=== PATIENT | male | born 1945 | race Caucasian/White ===

== ENCOUNTER → 2016-05-13 | Outpatient (CLI) | payer MEDICARE, OTHER ==
[~2016-05-13] MED LIST: /ATOR40TA; ACCU5TAB7; GLUC500T; PERC5TAB8; PERC7.5T8; TRIC145T19
--- NOTE | 2016-05-13 16:29 | REP ---
CT STUDY OF THE CHEST AND ABDOMEN WITHOUT CONTRAST: HISTORY: Abdominal aortic aneurysm without rupture. COMPARISON: CT study of the chest is from 05/21/2015. This prior study showed mild aneurysmal dilation of the ascending an descending thoracic aorta. CT FINDINGS: There are granulomatous calcific residuals in the right hilus, right mediastinum, and right upper lobe of the lung, unchanged from the comparison study. No significant pulmonary mass or nodule is seen. No infiltrate or atelectasis is observed. No endobronchial disease is appreciated. There is some low density mucous at the origin of the origin of the left mainstem bronchus. No hilar or mediastinal mass or adenopathy is seen. Vascular calcification is seen in the distribution of the left coronary artery and there are sclerotic calcifications at the level of the aortic valve. The AP dimension of the ascending aorta measures 4.[address]'s [address] scan at the level of the right main pulmonary artery. This is felt to be unchanged from the prior study. The descending aorta is not felt to be aneurysmal measuring 3.1 cm in greatest dimension, transversely. This is unchanged as well. No pleural or pericardiac effusion is seen. There are multiple bilateral low density lesions consistent with renal cyst again noted in each kidney. The infrarenal abdominal aorta is somewhat ectatic measuring 2.1 cm but not aneurysmal. No hepatic or splenic lesion is seen. No adrenal lesion is observed. No pancreatic abnormality is seen. Gallbladder is unremarkable. Small and large intestinal bowel loops are normal in the abdomen. No retroperitoneal mass or adenopathy is seen. IMPRESSION: 1. 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 2. The largest cyst affecting the right kidney is in the lower pole measuring 5.4 cm. The largest cyst in the left kidney is at mid to lower pole level measuring 3.8 cm in diameter. These can be confirmed by ultrasound. There were cysts in 2008 although they are larger now. 3. Old granulomatous calcifications in the right lung, right mediastinum and right hilus. 4. Sclerotic calcifications at the level of the aortic valve and root. Signed by Lexx Arnold MD 05/13/2016 06:01 P
== END ==
LOC: M RAD 10:03
PROVIDERS: ATTEND Physician Assistant
DX: I71.4 Abdominal aortic aneurysm, without rupture (principal); N28.1 Cyst of kidney, acquired

== ENCOUNTER 2016-06-02 19:49 | Emergency (ER) | payer OTHER, MEDICARE ==
[2016-06-02 20:42] LABS: BASO # 0.1 K/mm3 (0.0-0.2); BASO % 1.5 % (0.0-1.0); EOS # 0.2 K/mm3 (0.0-0.50); EOS % 3.2 % (0.0-3.0); LARGE UNSTAINED CELL # 0.3 K/mm3 (0.0-0.4); LARGE UNSTAINED CELL % 5.4 % (0.0-4.0); LYMPH # 1.9 K/mm3 (1.5-4.5); MEAN CORPUSCULAR HGB CONC 31.2 g/dl (32.0-36.5); MEAN CORPUSCULAR VOLUME 89.8 fl (80.0-96.0); MONO # 0.5 K/mm3 (0.0-0.8); MONO % 8.3 % (0.0-5.0); NEUTROPHILS # 2.9 K/mm3 (1.8-7.7); NEUTROPHILS % 52.6 % (36.0-66.0); PLATELET COUNT, AUTOMATED 325 k/mm3 (150-450); RED CELL DISTRIBUTION WIDTH 14.2 % (11.5-14.5); WHITE BLOOD COUNT 5.5 K/mm3 (4.0-10.0)
[2016-06-02 20:44] LABS: INR 0.94
[2016-06-02 21:03] LABS: ANION GAP 5 MEQ/L (8-16); BLOOD UREA NITROGEN 15 MG/DL (7-18); CALCIUM LEVEL 8.8 MG/DL (8.8-10.2); CARBON DIOXIDE LEVEL 30 MEQ/L (21-32); CHLORIDE LEVEL 107 MEQ/L (98-107); CREATININE FOR GFR 1.19 MG/DL (0.70-1.30); GLOMERULAR FILTRATION RATE > 60.0 (>42); GLUCOSE, FASTING 145 MG/DL (83-110); POTASSIUM SERUM 4.5 MEQ/L (3.5-5.1); SODIUM LEVEL 142 MEQ/L (136-145)
--- NOTE | 2016-06-02 21:20 | REPUSA ---
Clinical history: Pain, swelling. Findings: The right common femoral, superficial femoral, popliteal, and other deep venous structures compress normally and demonstrate normal color Doppler flow. Normal venous waveforms with augmentatio n are seen. However, there are numerous varicose veins in the medial aspect of the knee joint, some o f which appear to be thrombosed. Impression: No evidence of deep vein thrombosis in the femoral popliteal venous system. Superficial venous thromb osis of varicose veins in the medial aspect of the knee joint.
--- NOTE | 2016-06-02 22:00 | EDDOCDS ---
Physician Documentation [facility] Name: Ghanshyam Garcia Age: 71 yrs Sex: Male : 1945 Arrival Date: 06/02/2016 Time: 19:49 Bed I9 Private MD: David Florez P. Disposition: 06/02/16 21:42 Discharged to Home/Self Care. Impression: Acute embolism and thrombosis of superficial veins of right upper extremity. - Condition is Stable. - Discharge Instructions: Phlebitis. - Medication Reconciliation, Local Pharmacy Hours form. - Follow up: David Florez; When: 2 - 3 days; Reason: Recheck today's complaints. - Problem is new. - Symptoms are unchanged. - Notes: You were seen in the ED for pain and swelling in the right leg. Ultrasound showed superficial clot or thrombophlebitis but no deep blood clots. You may return to have this rechecked with your doctor this week - please call in the morning to arrange an appointment to be seen. You may take Ibuprofen as needed and apply warm compresses for comfort. Return to the ED for any worsening leg pain or swelling, chest pain, shortness of breath, lightheadedness, loss of consciousness or any other concerns. Historical: - Allergies: PENICILLINS; - Home Meds: 1. oxycodone-acetaminophen 5-325 mg Oral tab 1 tab (Last dose: Unknown) 2. atorvastatin 40 mg oral tab 1 tab once daily 3. omeprazole 40 mg Oral cpDR 1 cap once daily 4. fenofibrate oral 135 mg oral 1 cap once daily 5. metformin 500 mg Oral Tb24 1 tab once daily 6. lisinopril 5 mg Oral tab 1 tab once daily 7. Vitamin D 1.25 mg Oral daily 8. eye cap Unknown daily OTC medication 9. aspirin 81 mg Oral tab 1 tab once daily - PMHx: Macular Degeneration; Diabetes - NIDDM: uncontrolled; GERD; - PSHx: Rotator cuff repair, left, 2011; Left knee replaced 2010; left knee surgery 2015; - Social history: No barriers to communication noted, The patient speaks fluent Jordanian, Smoking status: Patient states was never smoker of tobacco. - Family history: Not pertinent. - : The pt / caregiver states he / she is not on anticoagulants. Home medication list is obtained from the patient. - Exposure Risk Screening:: None identified. Vital Signs: 06/02 19:51 BP 143 / 82; Pulse 76; Resp 18 S; Temp 97.9(O); Pulse Ox 99% on R/A; Weight 95.25 kg / dd6 209.99 lbs (R); Height 5 ft. 6 in. (167.64 cm) (R); 21:56 BP 113 / 73; Pulse 84; Resp 18; Temp 98; Pulse Ox 95% ; Pain 0/10; ms18 19:51 Body Mass Index 33.89 (95.25 kg, 167.64 cm) dd6 MDM: 20:19 Ultrasound LE Unilateral R/O DVT Ordered. EDMS 20:19 CBC with Diff Ordered. EDMS 20:19 BMP Ordered. EDMS 20:19 PT/INR Ordered. EDMS 20:19 PTT Ordered. EDMS 20:46 CBC with Diff Reviewed. br1 20:51 PTT Reviewed. br1 20:51 PT/INR Reviewed. br1 21:40 BMP Reviewed. br1 21:40 Ultrasound LE Unilateral R/O DVT Reviewed. br1 Signatures: Dispatcher [employer] Kristian Albert MD MD br1 Maria C Treadwell,RN RN ms18 Aayush FryRN RN mb9 FAWAD
--- NOTE | 2016-06-02 22:01 | EDDOCDS ---
Nurse's Notes [facility] Name: Ghanshyam Garcia Age: 71 yrs Sex: Male : 1945 Arrival Date: 06/02/2016 Time: 19:49 Bed I9 / 22 Private MD: David Florez P. Diagnosis: Acute embolism and thrombosis of superficial veins of right upper extremity Presentation: 06/02 20:02 Presenting complaint: Patient states: "I got a bump on my leg behind my knee here and mb9 it hurts". pt's reports he was seen at urgent care and told to come here to have an ultrasound done. Adult Sepsis Screening: The patient does not have new or worsening altered mentation. Patient's respiratory rate is less than 22. Systolic blood pressure is greater than 100. Patient has a qSOFA score of 0- Negative Sepsis Screen. Suicide/Homicide risk assessment- the patient denies having any suicidal and/or homicidal ideations and does not present with any other emotional, behavioral or mental health complaints. 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 Transition of care: patient was not received from another setting of care. 20:02 Acuity: RUBEN Level 3 mb9 20:02 Method Of Arrival: Walkin/Carried/Asstd mb9 Triage Assessment: 20:12 General: Appears in no apparent distress, Behavior is appropriate for age, cooperative. mb9 Pain: Location: medial aspect of right knee. Cardiovascular: pt's right lower extremity appears swollen compared to the left. pt has a swollen area approximately the size of a golf ball to the medial knee area. sit feels warm on palpation. . Historical: - Allergies: PENICILLINS; - Home Meds: 1. oxycodone-acetaminophen 5-325 mg Oral tab 1 tab (Last dose: Unknown) 2. atorvastatin 40 mg oral tab 1 tab once daily 3. omeprazole 40 mg Oral cpDR 1 cap once daily 4. fenofibrate oral 135 mg oral 1 cap once daily 5. metformin 500 mg Oral Tb24 1 tab once daily 6. lisinopril 5 mg Oral tab 1 tab once daily 7. Vitamin D 1.25 mg Oral daily 8. eye cap Unknown daily OTC medication 9. aspirin 81 mg Oral tab 1 tab once daily - PMHx: Macular Degeneration; Diabetes - NIDDM: uncontrolled; GERD; - PSHx: Rotator cuff repair, left, 2012; Left knee replaced 2010; left knee surgery 2016; - Social history: No barriers to communication noted, The patient speaks fluent Bulgarian, Smoking status: Patient states was never smoker of tobacco. - Family history: Not pertinent. - : The pt / caregiver states he / she is not on anticoagulants. Home medication list is obtained from the patient. - Exposure Risk Screening:: None identified. Screenin:31 Screening information is obtained from the patient. Fall risk: No risks identified. ms18 Assistance ADL's: requires no assistance with activities of daily living. Abuse/DV Screen: The patient / caregiver reports he/she is: not in a situation that causes fear, pain or injury. Nutritional screening: No deficits noted. Advance Directives: There is no living will. 21:56 home support is adequate. ms18 Assessment: 20:31 General: Appears in no apparent distress, comfortable, Behavior is appropriate for age, ms18 cooperative, pleasant. General: Pt reports some redness noted to his R thigh area. Pt denies pain at this time, but states that it hurts when he lays down to sleep at night. . Pain: Denies pain. Neurological: Level of Consciousness is awake, alert, obeys commands, Oriented to person, place, time. Neurological: Gait is steady, Speech is normal. Cardiovascular: Capillary refill < 3 seconds. Respiratory: Airway is patent Respiratory effort is even, unlabored. GI: No deficits noted. Derm: Skin is pink, warm & dry. 21:56 General: Appears in no apparent distress, comfortable, Behavior is appropriate for age, ms18 cooperative. Pain: Denies pain. Neurological: No deficits noted. Respiratory: Respiratory effort is even, unlabored. Derm: Skin is pink, warm & dry. normal. Vital Signs: 19:51 BP 143 / 82; Pulse 76; Resp 18 S; Temp 97.9(O); Pulse Ox 99% on R/A; Weight 95.25 kg dd6 (R); Height 5 ft. 6 in. (167.64 cm) (R); 21:56 BP 113 / 73; Pulse 84; Resp 18; Temp 98; Pulse Ox 95% ; Pain 0/10; ms18 19:51 Body Mass Index 33.89 (95.25 kg, 167.64 cm) dd6 Vitals: 19:51 Log In Time: June 02, 2016 at 19:49. dd6 ED Course: 19:50 Patient visited by Gabe Watt PCA. dd6 19:50 Patient moved to Waiting dd6 19:51 David Florez is Private Physician. dd6 19:51 Patient moved to Pre RCE dd6 20:04 Triage Initiated mb9 20:08 Kristian Morales MD is Attending Physician. br1 20:08 Patient moved to I9 lf1 20:17 Patient visited by Kristian Morales MD. br1 20:30 Patient visited by Maria C Treadwell,ETHAN. ms18 20:30 PTT Sent. ms18 20:30 PT/INR Sent. ms18 20:30 BMP Sent. ms18 20:30 CBC with Diff Sent. ms18 20:31 The patient / caregiver is instructed regarding the plan of care and ED course. ms18 Accompanied by Significant Other, Patient has correct armband on for positive identification. Bed in low position. Call light in reach. Property :Personal belongings accompany Pt. 20:53 Patient moved to Ultrasound dmg 21:11 Patient moved to I9 dmg 21:20 Patient visited by Maria C Treadwell,ETHAN. ms18 21:22 Ultrasound LE Unilateral R/O DVT Returned. EDMS 21:41 Patient visited by Kristian Morales MD. br1 21:42 David Florez is Referral Physician. br1 21:56 Patient visited by Maria C Treadwell,ETHAN. ms18 21:56 No IV's were initiated during this patient's visit. No procedures done that require ms18 assistance. Order Results: Lab Order: CBC with Diff; SPEC'M 06/02/16 20:23 Test: WHITE BLOOD COUNT; Value: 5.5; Range: 4.0-10.0; Units: K/mm3; Status: F Test: RED BLOOD COUNT; Value: 4.19; Range: 4.30-6.10; Abnormal: Below low normal; Units: M/mm3; Status: F Test: HEMOGLOBIN; Value: 11.7; Range: 14.0-18.0; Abnormal: Below low normal; Units: g/dl; Status: F Test: HEMATOCRIT; Value: 37.6; Range: 42.0-52.0; Abnormal: Below low normal; Units: %; Status: F Test: MEAN CORPUSCULAR VOLUME; Value: 89.8; Range: 80.0-96.0; Units: fl; Status: F Test: MEAN CORPUSCULAR HEMOGLOBIN; Value: 28.0; Range: 27.0-33.0; Units: pg; Status: F Test: MEAN CORPUSCULAR HGB CONC; Value: 31.2; Range: 32.0-36.5; Abnormal: Below low normal; Units: g/dl; Status: F Test: RED CELL DISTRIBUTION WIDTH; Value: 14.2; Range: 11.5-14.5; Units: %; Status: F Test: PLATELET COUNT, AUTOMATED; Value: 325; Range: 150-450; Units: k/mm3; Status: F Test: NEUTROPHILS %; Value: 52.6; Range: 36.0-66.0; Units: %; Status: F Test: LYMPH %; Value: 29.0; Range: 24.0-44.0; Units: %; Status: F Test: MONO %; Value: 8.3; Range: 0.0-5.0; Abnormal: Above high normal; Units: %; Status: F Test: EOS %; Value: 3.2; Range: 0.0-3.0; Abnormal: Above high normal; Units: %; Status: F Test: BASO %; Value: 1.5; Range: 0.0-1.0; Abnormal: Above high normal; Units: %; Status: F Test: LARGE UNSTAINED CELL %; Value: 5.4; Range: 0.0-4.0; Abnormal: Above high normal; Units: %; Status: F Test: NEUTROPHILS #; Value: 2.9; Range: 1.8-7.7; Units: K/mm3; Status: F Test: LYMPH #; Value: 1.9; Range: 1.5-4.5; Units: K/mm3; Status: F Test: MONO #; Value: 0.5; Range: 0.0-0.8; Units: K/mm3; Status: F Test: EOS #; Value: 0.2; Range: 0.0-0.50; Units: K/mm3; Status: F Test: BASO #; Value: 0.1; Range: 0.0-0.2; Units: K/mm3; Status: F Test: LARGE UNSTAINED CELL #; Value: 0.3; Range: 0.0-0.4; Units: K/mm3; Status: F Lab Order: BMP; SPEC'M 06/02/16 20:23 Test: GLUCOSE, FASTING; Value: 145; Range: 83-110; Abnormal: Above high normal; Units: MG/DL; Status: F Test: BLOOD UREA NITROGEN; Value: 15; Range: 7-18; Units: MG/DL; Status: F Test: CREATININE FOR GFR; Value: 1.19; Range: 0.70-1.30; Units: MG/DL; Status: F Test: GLOMERULAR FILTRATION RATE; Value: > 60.0; Range: >42; Status: F Test: SODIUM LEVEL; Value: 142; Range: 136-145; Units: MEQ/L; Status: F Test: POTASSIUM SERUM; Value: 4.5; Range: 3.5-5.1; Units: MEQ/L; Status: F Test: CHLORIDE LEVEL; Value: 107; Range: 98-107; Units: MEQ/L; Status: F Test: CARBON DIOXIDE LEVEL; Value: 30; Range: 21-32; Units: MEQ/L; Status: F Test: ANION GAP; Value: 5; Range: 8-16; Abnormal: Below low normal; Units: MEQ/L; Status: F Test: CALCIUM LEVEL; Value: 8.8; Range: 8.8-10.2; Units: MG/DL; Status: F Test Note: ; Units are mL/min/1.73 m2 Chronic Kidney Disease Staging per NKF: Stage I & II GFR >=60 Normal to Mildly Decreased Stage III GFR 30-59 Moderately Decreased Stage IV GFR 15-29 Severely Decreased Stage V GFR <15 Very Little GFR Left ESRD GFR <15 on SALES PROJECT MANAGER Lab Order: PT/INR; SPEC'06/02/16 20:23 Test: PROTHROMBIN TIME; Value: 12.7; Range: 12.3-14.5; Units: SECONDS; Status: F Test: INR; Value: 0.94; Status: F Test Note: ; THERAPUTIC HUMAN INR VALUES INDICATIONS NORMAL RANGES PROPHYLAXIS/TREATMENT OF: VENOUS THROMBOSIS 2.0-3.0 PULMONARY EMBOLISM 2.0-3.0 PREVENTION OF SYSTEMIC EMBOLISM FROM: TISSUE HEART VALVES 2.0-3.0 ACUTE MYOCARDIAL INFARCTION 2.0-3.0 VALVULAR HEART DISEASE 2.0-3.0 ATRIAL FIBRILLATION 2.0-3.0 MECHANICAL VALVES(HIGH RISK) 2.5-3.5 RECURRENT MYOCARDIAL INFARCTION 2.5-3.5 Lab Order: PTT; SPEC'M 06/02/16 20:23 Test: PARTIAL THROMBOPLASTIN TIME; Value: 25.6; Range: 26.6-37.1; Abnormal: Below low normal; Units: SECONDS; Status: F Radiology Order: Ultrasound LE Unilateral R/O DVT Test: Ultrasound LE Unilateral R/O DVT REASON FOR EXAMINATION: Deformity/Swelling; ; Clinical history: Pain, swelling.; Findings: The right common femoral, superficial femoral, popliteal, and other deep venous structures; compress normally and demonstrate normal color Doppler flow. Normal venous waveforms with augmentatio; n are seen. However, there are numerous varicose veins in the medial aspect of the knee joint, some o; f which appear to be thrombosed.; Impression:; No evidence of deep vein thrombosis in the femoral popliteal venous system. Superficial venous thromb; osis of varicose veins in the medial aspect of the knee joint.; ; Outcome: 21:42 Discharge ordered by Provider. br1 21:56 Discharge Assessment: Patient awake, alert and oriented x 3. No cognitive and/or ms18 functional deficits noted. Patient verbalized understanding of disposition instructions. patient administered narcotics - no. The following High Risk Discharge criteria are identified: None. Discharged to home ambulatory. Condition: good Condition: stable. Discharge instructions given to patient, Instructed on discharge instructions, follow up and referral plans. Demonstrated understanding of instructions, Pt was receptive of discharge instructions/ teaching. Ultrasound Study completed. 21:59 Patient left the ED. ms18 Signatures: Dispatcher [employer] EDCarmelita Iniguez Lisa,RN RN lf1 Kristian Morales MD MD br1 Gabe Watt, EDGING MACHINE FEEDER EDGING MACHINE FEEDER dd6 Mraia C Treadwell RN RN ms18 Aayush Fry RN RN mb9 MTDD
--- NOTE | 2016-06-04 23:01 | EDDOCDS ---
Physician Documentation [facility] Name: Ghanshyam Garcia Age: 71 yrs Sex: Male : 1945 Arrival Date: 06/02/2016 Time: 19:49 Bed I9 Private MD: David Florez P. Disposition: 06/02/16 21:42 Discharged to Home/Self Care. Impression: Acute embolism and thrombosis of superficial veins of right upper extremity. - Condition is Stable. - Discharge Instructions: Phlebitis. - Medication Reconciliation, Local Pharmacy Hours form. - Follow up: David Florez; When: 2 - 3 days; Reason: Recheck today's complaints. - Problem is new. - Symptoms are unchanged. - Notes: You were seen in the ED for pain and swelling in the right leg. Ultrasound showed superficial clot or thrombophlebitis but no deep blood clots. You may return to have this rechecked with your doctor this week - please call in the morning to arrange an appointment to be seen. You may take Ibuprofen as needed and apply warm compresses for comfort. Return to the ED for any worsening leg pain or swelling, chest pain, shortness of breath, lightheadedness, loss of consciousness or any other concerns. Historical: - Allergies: PENICILLINS; - Home Meds: 1. oxycodone-acetaminophen 5-325 mg Oral tab 1 tab (Last dose: Unknown) 2. atorvastatin 40 mg oral tab 1 tab once daily 3. omeprazole 40 mg Oral cpDR 1 cap once daily 4. fenofibrate oral 135 mg oral 1 cap once daily 5. metformin 500 mg Oral Tb24 1 tab once daily 6. lisinopril 5 mg Oral tab 1 tab once daily 7. Vitamin D 1.25 mg Oral daily 8. eye cap Unknown daily OTC medication 9. aspirin 81 mg Oral tab 1 tab once daily - PMHx: Macular Degeneration; Diabetes - NIDDM: uncontrolled; GERD; - PSHx: Rotator cuff repair, left, 2011; Left knee replaced 2010; left knee surgery 2015; - Social history: No barriers to communication noted, The patient speaks fluent Tajik, Smoking status: Patient states was never smoker of tobacco. - Family history: Not pertinent. - : The pt / caregiver states he / she is not on anticoagulants. Home medication list is obtained from the patient. - Exposure Risk Screening:: None identified. Vital Signs: 06/02 19:51 BP 143 / 82; Pulse 76; Resp 18 S; Temp 97.9(O); Pulse Ox 99% on R/A; Weight 95.25 kg / dd6 209.99 lbs (R); Height 5 ft. 6 in. (167.64 cm) (R); 21:56 BP 113 / 73; Pulse 84; Resp 18; Temp 98; Pulse Ox 95% ; Pain 0/10; ms18 19:51 Body Mass Index 33.89 (95.25 kg, 167.64 cm) dd6 MDM: 20:19 Ultrasound LE Unilateral R/O DVT Ordered. EDMS 20:19 CBC with Diff Ordered. EDMS 20:19 BMP Ordered. EDMS 20:19 PT/INR Ordered. EDMS 20:19 PTT Ordered. EDMS 20:46 CBC with Diff Reviewed. br1 20:51 PTT Reviewed. br1 20:51 PT/INR Reviewed. br1 21:40 BMP Reviewed. br1 21:40 Ultrasound LE Unilateral R/O DVT Reviewed. br1 06/03 10:34 T-Sheet-- Draft Copy was scanned into mAPPn and attached to record. gb 10:34 Radiology Report was scanned into mAPPn and attached to record. gb Signatures: Dispatcher [employer] EDAdali Adams, Reg Reg gb Kristian Morales MD MD br1 Maria C Treadwell,ETHAN RN ms18 Aayush Fry RN RN mb9 The chart was reviewed and I authenticate all verbal orders and agree with the evaluation and treatment provided.Attachments: 10:34 T-Sheet-- Draft Copy gb Chart Complete MTDD
--- NOTE | 2016-06-04 23:01 | EDDOCDS ---
Nurse's Notes [facility] Name: Ghanshyam Garcia Age: 71 yrs Sex: Male : 1945 Arrival Date: 06/02/2016 Time: 19:49 Bed I9 / 22 Private MD: David Florez P. Diagnosis: Acute embolism and thrombosis of superficial veins of right upper extremity Presentation: 06/02 20:02 Presenting complaint: Patient states: "I got a bump on my leg behind my knee here and mb9 it hurts". pt's reports he was seen at urgent care and told to come here to have an ultrasound done. Adult Sepsis Screening: The patient does not have new or worsening altered mentation. Patient's respiratory rate is less than 22. Systolic blood pressure is greater than 100. Patient has a qSOFA score of 0- Negative Sepsis Screen. Suicide/Homicide risk assessment- the patient denies having any suicidal and/or homicidal ideations and does not present with any other emotional, behavioral or mental health complaints. Status: Patient is not a septic tank servicer or dependent. Transition of care: patient was not received from another setting of care. 20:02 Acuity: RUBEN Level 3 mb9 20:02 Method Of Arrival: Walkin/Carried/Asstd mb9 Triage Assessment: 20:12 General: Appears in no apparent distress, Behavior is appropriate for age, cooperative. mb9 Pain: Location: medial aspect of right knee. Cardiovascular: pt's right lower extremity appears swollen compared to the left. pt has a swollen area approximately the size of a golf ball to the medial knee area. sit feels warm on palpation. . Historical: - Allergies: PENICILLINS; - Home Meds: 1. oxycodone-acetaminophen 5-325 mg Oral tab 1 tab (Last dose: Unknown) 2. atorvastatin 40 mg oral tab 1 tab once daily 3. omeprazole 40 mg Oral cpDR 1 cap once daily 4. fenofibrate oral 135 mg oral 1 cap once daily 5. metformin 500 mg Oral Tb24 1 tab once daily 6. lisinopril 5 mg Oral tab 1 tab once daily 7. Vitamin D 1.25 mg Oral daily 8. eye cap Unknown daily OTC medication 9. aspirin 81 mg Oral tab 1 tab once daily - PMHx: Macular Degeneration; Diabetes - NIDDM: uncontrolled; GERD; - PSHx: Rotator cuff repair, left, 2012; Left knee replaced 2010; left knee surgery 2016; - Social history: No barriers to communication noted, The patient speaks fluent Macedonian, Smoking status: Patient states was never smoker of tobacco. - Family history: Not pertinent. - : The pt / caregiver states he / she is not on anticoagulants. Home medication list is obtained from the patient. - Exposure Risk Screening:: None identified. Screenin:31 Screening information is obtained from the patient. Fall risk: No risks identified. ms18 Assistance ADL's: requires no assistance with activities of daily living. Abuse/DV Screen: The patient / caregiver reports he/she is: not in a situation that causes fear, pain or injury. Nutritional screening: No deficits noted. Advance Directives: There is no living will. 21:56 home support is adequate. ms18 Assessment: 20:31 General: Appears in no apparent distress, comfortable, Behavior is appropriate for age, ms18 cooperative, pleasant. General: Pt reports some redness noted to his R thigh area. Pt denies pain at this time, but states that it hurts when he lays down to sleep at night. . Pain: Denies pain. Neurological: Level of Consciousness is awake, alert, obeys commands, Oriented to person, place, time. Neurological: Gait is steady, Speech is normal. Cardiovascular: Capillary refill < 3 seconds. Respiratory: Airway is patent Respiratory effort is even, unlabored. GI: No deficits noted. Derm: Skin is pink, warm & dry. 21:56 General: Appears in no apparent distress, comfortable, Behavior is appropriate for age, ms18 cooperative. Pain: Denies pain. Neurological: No deficits noted. Respiratory: Respiratory effort is even, unlabored. Derm: Skin is pink, warm & dry. normal. Vital Signs: 19:51 BP 143 / 82; Pulse 76; Resp 18 S; Temp 97.9(O); Pulse Ox 99% on R/A; Weight 95.25 kg dd6 (R); Height 5 ft. 6 in. (167.64 cm) (R); 21:56 BP 113 / 73; Pulse 84; Resp 18; Temp 98; Pulse Ox 95% ; Pain 0/10; ms18 19:51 Body Mass Index 33.89 (95.25 kg, 167.64 cm) dd6 Vitals: 19:51 Log In Time: June 02, 2016 at 19:49. dd6 ED Course: 19:50 Patient visited by Gabe Watt PCA. dd6 19:50 Patient moved to Waiting dd6 19:51 David Florez is Private Physician. dd6 19:51 Patient moved to Pre RCE dd6 20:04 Triage Initiated mb9 20:08 Kristian Morales MD is Attending Physician. br1 20:08 Patient moved to I9 / lf1 20:17 Patient visited by Kristian Morales MD. br1 20:30 Patient visited by Maria C Treadwell,ETHAN. ms18 20:30 PTT Sent. ms18 20:30 PT/INR Sent. ms18 20:30 BMP Sent. ms18 20:30 CBC with Diff Sent. ms18 20:31 The patient / caregiver is instructed regarding the plan of care and ED course. ms18 Accompanied by Significant Other, Patient has correct armband on for positive identification. Bed in low position. Call light in reach. Property :Personal belongings accompany Pt. 20:53 Patient moved to Ultrasound dmg 21:11 Patient moved to I9 / dmg 21:20 Patient visited by Maria C Treadwell,ETHAN. ms18 21:22 Ultrasound LE Unilateral R/O DVT Returned. EDMS 21:41 Patient visited by Kristian Morales MD. br1 21:42 David Florez is Referral Physician. br1 21:56 Patient visited by Maria C Treadwell,ETHAN. ms18 21:56 No IV's were initiated during this patient's visit. No procedures done that require ms18 assistance. 06/03 10:34 T-Sheet-- Draft Copy was scanned into [employer] and attached to record. gb 10:34 Radiology Report was scanned into [employer] and attached to record. gb Order Results: Lab Order: CBC with Diff; SPEC'M 06/02/16 20:23 Test: WHITE BLOOD COUNT; Value: 5.5; Range: 4.0-10.0; Units: K/mm3; Status: F Test: RED BLOOD COUNT; Value: 4.19; Range: 4.30-6.10; Abnormal: Below low normal; Units: M/mm3; Status: F Test: HEMOGLOBIN; Value: 11.7; Range: 14.0-18.0; Abnormal: Below low normal; Units: g/dl; Status: F Test: HEMATOCRIT; Value: 37.6; Range: 42.0-52.0; Abnormal: Below low normal; Units: %; Status: F Test: MEAN CORPUSCULAR VOLUME; Value: 89.8; Range: 80.0-96.0; Units: fl; Status: F Test: MEAN CORPUSCULAR HEMOGLOBIN; Value: 28.0; Range: 27.0-33.0; Units: pg; Status: F Test: MEAN CORPUSCULAR HGB CONC; Value: 31.2; Range: 32.0-36.5; Abnormal: Below low normal; Units: g/dl; Status: F Test: RED CELL DISTRIBUTION WIDTH; Value: 14.2; Range: 11.5-14.5; Units: %; Status: F Test: PLATELET COUNT, AUTOMATED; Value: 325; Range: 150-450; Units: k/mm3; Status: F Test: NEUTROPHILS %; Value: 52.6; Range: 36.0-66.0; Units: %; Status: F Test: LYMPH %; Value: 29.0; Range: 24.0-44.0; Units: %; Status: F Test: MONO %; Value: 8.3; Range: 0.0-5.0; Abnormal: Above high normal; Units: %; Status: F Test: EOS %; Value: 3.2; Range: 0.0-3.0; Abnormal: Above high normal; Units: %; Status: F Test: BASO %; Value: 1.5; Range: 0.0-1.0; Abnormal: Above high normal; Units: %; Status: F Test: LARGE UNSTAINED CELL %; Value: 5.4; Range: 0.0-4.0; Abnormal: Above high normal; Units: %; Status: F Test: NEUTROPHILS #; Value: 2.9; Range: 1.8-7.7; Units: K/mm3; Status: F Test: LYMPH #; Value: 1.9; Range: 1.5-4.5; Units: K/mm3; Status: F Test: MONO #; Value: 0.5; Range: 0.0-0.8; Units: K/mm3; Status: F Test: EOS #; Value: 0.2; Range: 0.0-0.50; Units: K/mm3; Status: F Test: BASO #; Value: 0.1; Range: 0.0-0.2; Units: K/mm3; Status: F Test: LARGE UNSTAINED CELL #; Value: 0.3; Range: 0.0-0.4; Units: K/mm3; Status: F Lab Order: BMP; SPEC' 06/02/16 20:23 Test: GLUCOSE, FASTING; Value: 145; Range: 83-110; Abnormal: Above high normal; Units: MG/DL; Status: F Test: BLOOD UREA NITROGEN; Value: 15; Range: 7-18; Units: MG/DL; Status: F Test: CREATININE FOR GFR; Value: 1.19; Range: 0.70-1.30; Units: MG/DL; Status: F Test: GLOMERULAR FILTRATION RATE; Value: > 60.0; Range: >42; Status: F Test: SODIUM LEVEL; Value: 142; Range: 136-145; Units: MEQ/L; Status: F Test: POTASSIUM SERUM; Value: 4.5; Range: 3.5-5.1; Units: MEQ/L; Status: F Test: CHLORIDE LEVEL; Value: 107; Range: 98-107; Units: MEQ/L; Status: F Test: CARBON DIOXIDE LEVEL; Value: 30; Range: 21-32; Units: MEQ/L; Status: F Test: ANION GAP; Value: 5; Range: 8-16; Abnormal: Below low normal; Units: MEQ/L; Status: F Test: CALCIUM LEVEL; Value: 8.8; Range: 8.8-10.2; Units: MG/DL; Status: F Test Note: ; Units are mL/min/1.73 m2 Chronic Kidney Disease Staging per NKF: Stage I & II GFR >=60 Normal to Mildly Decreased Stage III GFR 30-59 Moderately Decreased Stage IV GFR 15-29 Severely Decreased Stage V GFR <15 Very Little GFR Left ESRD GFR <15 on SPA MANAGER/ESTHETICIAN Lab Order: PT/INR; SPEC' 06/02/16 20:23 Test: PROTHROMBIN TIME; Value: 12.7; Range: 12.3-14.5; Units: SECONDS; Status: F Test: INR; Value: 0.94; Status: F Test Note: ; THERAPUTIC HUMAN INR VALUES INDICATIONS NORMAL RANGES PROPHYLAXIS/TREATMENT OF: VENOUS THROMBOSIS 2.0-3.0 PULMONARY EMBOLISM 2.0-3.0 PREVENTION OF SYSTEMIC EMBOLISM FROM: TISSUE HEART VALVES 2.0-3.0 ACUTE MYOCARDIAL INFARCTION 2.0-3.0 VALVULAR HEART DISEASE 2.0-3.0 ATRIAL FIBRILLATION 2.0-3.0 MECHANICAL VALVES(HIGH RISK) 2.5-3.5 RECURRENT MYOCARDIAL INFARCTION 2.5-3.5 Lab Order: PTT; SPEC'M 06/02/16 20:23 Test: PARTIAL THROMBOPLASTIN TIME; Value: 25.6; Range: 26.6-37.1; Abnormal: Below low normal; Units: SECONDS; Status: F Radiology Order: Ultrasound LE Unilateral R/O DVT Test: Ultrasound LE Unilateral R/O DVT REASON FOR EXAMINATION: Deformity/Swelling; ; Clinical history: Pain, swelling.; Findings: The right common femoral, superficial femoral, popliteal, and other deep venous structures; compress normally and demonstrate normal color Doppler flow. Normal venous waveforms with augmentatio; n are seen. However, there are numerous varicose veins in the medial aspect of the knee joint, some o; f which appear to be thrombosed.; Impression:; No evidence of deep vein thrombosis in the femoral popliteal venous system. Superficial venous thromb; osis of varicose veins in the medial aspect of the knee joint.; ; Outcome: 06/02 21:42 Discharge ordered by Provider. br1 21:56 Discharge Assessment: Patient awake, alert and oriented x 3. No cognitive and/or ms18 functional deficits noted. Patient verbalized understanding of disposition instructions. patient administered narcotics - no. The following High Risk Discharge criteria are identified: None. Discharged to home ambulatory. Condition: good Condition: stable. Discharge instructions given to patient, Instructed on discharge instructions, follow up and referral plans. Demonstrated understanding of instructions, Pt was receptive of discharge instructions/ teaching. Ultrasound Study completed. 21:59 Patient left the ED. ms18 Signatures: Dispatcher [employer] Carmelita Noriega Gloria, Reg Reg Gina Coulter RN RN lf1 Kristian Morales MD MD br1 Gabe Watt, INSTRUCTIONAL LEADER INSTRUCTIONAL LEADER dd6 Maria C Treadwell,RN RN ms18 Aayush FryRN RN mb9 Chart Complete MTDD
--- NOTE | 2016-06-04 23:01 | EDDOCDS ---
Physician Documentation [facility] Name: Ghanshyam Garcia Age: 71 yrs Sex: Male : 1945 Arrival Date: 06/02/2016 Time: 19:49 Bed I9 Private MD: David Florez P. Disposition: 06/02/16 21:42 Discharged to Home/Self Care. Impression: Acute embolism and thrombosis of superficial veins of right upper extremity. - Condition is Stable. - Discharge Instructions: Phlebitis. - Medication Reconciliation, Local Pharmacy Hours form. - Follow up: David Florez; When: 2 - 3 days; Reason: Recheck today's complaints. - Problem is new. - Symptoms are unchanged. - Notes: You were seen in the ED for pain and swelling in the right leg. Ultrasound showed superficial clot or thrombophlebitis but no deep blood clots. You may return to have this rechecked with your doctor this week - please call in the morning to arrange an appointment to be seen. You may take Ibuprofen as needed and apply warm compresses for comfort. Return to the ED for any worsening leg pain or swelling, chest pain, shortness of breath, lightheadedness, loss of consciousness or any other concerns. Historical: - Allergies: PENICILLINS; - Home Meds: 1. oxycodone-acetaminophen 5-325 mg Oral tab 1 tab (Last dose: Unknown) 2. atorvastatin 40 mg oral tab 1 tab once daily 3. omeprazole 40 mg Oral cpDR 1 cap once daily 4. fenofibrate oral 135 mg oral 1 cap once daily 5. metformin 500 mg Oral Tb24 1 tab once daily 6. lisinopril 5 mg Oral tab 1 tab once daily 7. Vitamin D 1.25 mg Oral daily 8. eye cap Unknown daily OTC medication 9. aspirin 81 mg Oral tab 1 tab once daily - PMHx: Macular Degeneration; Diabetes - NIDDM: uncontrolled; GERD; - PSHx: Rotator cuff repair, left, 2011; Left knee replaced 2010; left knee surgery 2015; - Social history: No barriers to communication noted, The patient speaks fluent Tristanian, Smoking status: Patient states was never smoker of tobacco. - Family history: Not pertinent. - : The pt / caregiver states he / she is not on anticoagulants. Home medication list is obtained from the patient. - Exposure Risk Screening:: None identified. Vital Signs: 06/02 19:51 BP 143 / 82; Pulse 76; Resp 18 S; Temp 97.9(O); Pulse Ox 99% on R/A; Weight 95.25 kg / dd6 209.99 lbs (R); Height 5 ft. 6 in. (167.64 cm) (R); 21:56 BP 113 / 73; Pulse 84; Resp 18; Temp 98; Pulse Ox 95% ; Pain 0/10; ms18 19:51 Body Mass Index 33.89 (95.25 kg, 167.64 cm) dd6 MDM: 20:19 Ultrasound LE Unilateral R/O DVT Ordered. EDMS 20:19 CBC with Diff Ordered. EDMS 20:19 BMP Ordered. EDMS 20:19 PT/INR Ordered. EDMS 20:19 PTT Ordered. EDMS 20:46 CBC with Diff Reviewed. br1 20:51 PTT Reviewed. br1 20:51 PT/INR Reviewed. br1 21:40 BMP Reviewed. br1 21:40 Ultrasound LE Unilateral R/O DVT Reviewed. br1 06/03 10:34 T-Sheet-- Draft Copy was scanned into [employer] and attached to record. gb 10:34 Radiology Report was scanned into [employer] and attached to record. gb Signatures: Dispatcher [employer] EDAdali Adams, Reg Reg gb Kristian Morales MD MD br1 Maria C Treadwell,ETHAN RN ms18 Aayush Fry RN RN mb9 The chart was reviewed and I authenticate all verbal orders and agree with the evaluation and treatment provided.Attachments: 10:34 T-Sheet-- Draft Copy gb Chart Complete MTDD
== END 2016-06-02 21:59 | disposition home or self-care (01) ==
LOC: M ED 19:49
DX: I80.01 Phlebitis and thrombophlebitis of superficial vessels of right lower extremity (principal); E11.65 Type 2 diabetes mellitus with hyperglycemia; K21.9 Gastro-esophageal reflux disease without esophagitis; H35.30 Unspecified macular degeneration; Z79.82 Long term (current) use of aspirin; Z79.899 Other long term (current) drug therapy; Z88.0 Allergy status to penicillin; Z79.84 Long term (current) use of oral hypoglycemic drugs

== ENCOUNTER → 2016-08-07 | Outpatient (CLI) | payer MEDICARE, OTHER ==
[2016-08-07 09:30] LABS: ALBUMIN 3.8 GM/DL (3.2-5.2); ALBUMIN/GLOBULIN RATIO 1.12 (1.00-1.93); BILIRUBIN,TOTAL 0.3 MG/DL (0.2-1.0); CREATININE FOR GFR 1.34 MG/DL (0.70-1.30); GLOMERULAR FILTRATION RATE 55.9 (>42); POTASSIUM SERUM 4.9 MEQ/L (3.5-5.1); TOTAL PROTEIN 7.2 GM/DL (6.4-8.2)
[2016-08-08 14:10] LABS: PSA TOTAL 3.1 ng/mL (0.0-4.0)
== END ==
LOC: M WUC 08:02
PROVIDERS: ATTEND Emergency Medicine
DX: E78.2 Mixed hyperlipidemia (principal); E11.40 Type 2 diabetes mellitus with diabetic neuropathy, unspecified; N40.1 Benign prostatic hyperplasia with lower urinary tract symptoms

== ENCOUNTER → 2017-02-13 | Outpatient (REF) | payer MEDICARE, OTHER ==
[2017-02-13 13:54] LABS: ALBUMIN 3.6 GM/DL (3.2-5.2); ALBUMIN/GLOBULIN RATIO 1.13 (1.00-1.93); ALKALINE PHOSPHATASE 73 U/L (45-117); ALT/SGPT 22 U/L (12-78); ANION GAP 2 MEQ/L (8-16); AST/SGOT 13 U/L (15-37); BILIRUBIN,TOTAL 0.5 MG/DL (0.2-1.0); BLOOD UREA NITROGEN 20 MG/DL (7-18); CALCIUM LEVEL 8.1 MG/DL (8.8-10.2); CARBON DIOXIDE LEVEL 32 MEQ/L (21-32); CHLORIDE LEVEL 105 MEQ/L (98-107); CHOLESTEROL LEVEL 148 MG/DL (<200); CREATININE FOR GFR 1.18 MG/DL (0.70-1.30); GLOMERULAR FILTRATION RATE > 60.0 (>42); GLUCOSE, FASTING 122 MG/DL (83-110); SODIUM LEVEL 139 MEQ/L (136-145); TOTAL PROTEIN 6.8 GM/DL (6.4-8.2); TRIGLYCERIDES LEVEL 129 MG/DL (<150)
[2017-02-13 14:17] LABS: POTASSIUM SERUM 5.9 MEQ/L (3.5-5.1)
== END ==
LOC: M LABWUC 12:36
PROVIDERS: ATTEND Emergency Medicine
DX: E55.9 Vitamin D deficiency, unspecified (principal); E78.2 Mixed hyperlipidemia; E11.40 Type 2 diabetes mellitus with diabetic neuropathy, unspecified

== ENCOUNTER → 2017-07-26 | Outpatient (CLI) | payer MEDICARE, OTHER ==
[2017-07-26 09:16] LABS: ESTIMATED AVERAGE GLUCOSE 140 MG/DL (60-110); HEMOGLOBIN A1c 6.5 %
[2017-07-26 09:28] LABS: ALBUMIN 3.8 GM/DL (3.2-5.2); ALBUMIN/GLOBULIN RATIO 1.23 (1.00-1.93); ALKALINE PHOSPHATASE 66 U/L (45-117); ALT/SGPT 19 U/L (12-78); ANION GAP 5 MEQ/L (8-16); AST/SGOT 18 U/L (7-37); BILIRUBIN,TOTAL 0.3 MG/DL (0.2-1.0); BLOOD UREA NITROGEN 22 MG/DL (7-18); CALCIUM LEVEL 9.2 MG/DL (8.8-10.2); CARBON DIOXIDE LEVEL 30 MEQ/L (21-32); CHLORIDE LEVEL 109 MEQ/L (98-107); CHOLESTEROL LEVEL 141 MG/DL (<200); CHOLESTEROL RISK RATIO 3.439 (<5); CREATININE FOR GFR 1.36 MG/DL (0.70-1.30); GLOMERULAR FILTRATION RATE 54.8 (>42); GLUCOSE, FASTING 115 MG/DL (70-100); HDL CHOLESTEROL 41 MG/DL (>40); LDL CHOLESTEROL 73.2 MG/DL (<100); NON-HDL-C 100 MG/DL; SODIUM LEVEL 144 MEQ/L (136-145); TOTAL PROTEIN 6.9 GM/DL (6.4-8.2); TRIGLYCERIDES LEVEL 134 MG/DL (<150)
[2017-07-26 09:37] LABS: POTASSIUM SERUM 5.9 MEQ/L (3.5-5.1)
[2017-07-28 00:06] LABS: PSA TOTAL 2.9 ng/mL (0.0-4.0)
== END ==
LOC: M WUC 08:05
DX: E78.2 Mixed hyperlipidemia (principal); E11.40 Type 2 diabetes mellitus with diabetic neuropathy, unspecified; N40.1 Benign prostatic hyperplasia with lower urinary tract symptoms
CPT/HCPCS: 80053

== ENCOUNTER → 2017-09-02 | Outpatient (CLI) | payer MEDICARE, OTHER | LOC: M RAD 14:52 | DX: I71.2 Thoracic aortic aneurysm, without rupture (principal) | CPT/HCPCS: 71250 ==

== ENCOUNTER → 2018-03-04 | Outpatient (CLI) | payer MEDICARE, OTHER ==
[2018-03-04 10:23] LABS: ALBUMIN 3.7 GM/DL (3.2-5.2); ALBUMIN/GLOBULIN RATIO 1.19 (1.00-1.93); ALKALINE PHOSPHATASE 66 U/L (45-117); ALT/SGPT 21 U/L (12-78); ANION GAP 6 MEQ/L (8-16); AST/SGOT 19 U/L (7-37); BILIRUBIN,TOTAL 0.3 MG/DL (0.2-1.0); BLOOD UREA NITROGEN 26 MG/DL (7-18); CALCIUM LEVEL 9.4 MG/DL (8.8-10.2); CARBON DIOXIDE LEVEL 31 MEQ/L (21-32); CHLORIDE LEVEL 105 MEQ/L (98-107); CHOLESTEROL LEVEL 150 MG/DL (<200); CHOLESTEROL RISK RATIO 3.409 (<5); CREATININE FOR GFR 1.51 MG/DL (0.70-1.30); GLOMERULAR FILTRATION RATE 48.5 (>42); GLUCOSE, FASTING 116 MG/DL (70-100); HDL CHOLESTEROL 44 MG/DL (>40); LDL CHOLESTEROL 88 MG/DL (<100); NON-HDL-C 106 MG/DL; POTASSIUM SERUM 5.4 MEQ/L (3.5-5.1); SODIUM LEVEL 142 MEQ/L (136-145); TOTAL PROTEIN 6.8 GM/DL (6.4-8.2); TRIGLYCERIDES LEVEL 90 MG/DL (<150)
[2018-03-04 11:00] LABS: TOTAL 25(OH) VITAMIN D 45.7 NG/ML (30.0-100.0)
[2018-03-04 12:00] LABS: CREATININE, URINE 86.4 MG/DL; MALB URINE SIEMENS 11.2 MG/L
[2018-03-04 12:28] LABS: ESTIMATED AVERAGE GLUCOSE 140 MG/DL (60-110); HEMOGLOBIN A1c 6.5 %
== END ==
LOC: M WUC 08:11
DX: E11.40 Type 2 diabetes mellitus with diabetic neuropathy, unspecified (principal); E78.2 Mixed hyperlipidemia; E55.9 Vitamin D deficiency, unspecified
CPT/HCPCS: 80053

== ENCOUNTER 2018-03-30 10:10 | Emergency (ER) | payer OTHER, MEDICARE ==
[2018-03-30] MEDS: NORCO, ANEXSIA 5/325MG TABLET (HYDROcodone/ACETAMINOPHEN) PO (11:34)
== END 2018-03-30 11:52 | disposition home or self-care (01) ==
LOC: M ED 10:10
DX: S39.012A Strain of muscle, fascia and tendon of lower back, initial encounter (principal); V48.0XXA Car driver injured in noncollision transport accident in nontraffic accident, initial encounter; Y92.9 Unspecified place or not applicable; Y93.9 Activity, unspecified; Y99.9 Unspecified external cause status; E11.9 Type 2 diabetes mellitus without complications; I10 Essential (primary) hypertension; G47.30 Sleep apnea, unspecified; E78.5 Hyperlipidemia, unspecified; M19.90 Unspecified osteoarthritis, unspecified site; Z87.891 Personal history of nicotine dependence; Z79.82 Long term (current) use of aspirin; Z79.84 Long term (current) use of oral hypoglycemic drugs; Z79.899 Other long term (current) drug therapy; Z88.0 Allergy status to penicillin
CPT/HCPCS: 72110

== ENCOUNTER → 2018-09-24 | Outpatient (CLI) | payer MEDICARE, OTHER ==
[~2018-09-24] MED LIST changes: -/ATOR40TA; +ACET500T15 PO; +ASPI81TA85 PO; +CYCL5TAB PO; +LIPI1TAB2
[2018-09-24 13:45] LABS: HEMOGLOBIN A1c 6.7 %
[2018-09-24 13:47] LABS: ALBUMIN 3.7 GM/DL (3.2-5.2); BILIRUBIN,TOTAL 0.4 MG/DL (0.2-1.0); CREATININE FOR GFR 1.43 MG/DL (0.70-1.30); GLOMERULAR FILTRATION RATE 51.6 (>42); POTASSIUM SERUM 5.5 MEQ/L (3.5-5.1); TOTAL PROTEIN 7.5 GM/DL (6.4-8.2)
== END ==
LOC: M WUC 10:55
PROVIDERS: ATTEND Physician Assistant
DX: E11.40 Type 2 diabetes mellitus with diabetic neuropathy, unspecified (principal)

== ENCOUNTER → 2018-10-12 | Outpatient (CLI) | payer MEDICARE, OTHER ==
[2018-10-12 13:43] LABS: BLOOD UREA NITROGEN 16 MG/DL (7-18); CALCIUM LEVEL 8.8 MG/DL (8.8-10.2); CARBON DIOXIDE LEVEL 30 MEQ/L (21-32); CHLORIDE LEVEL 109 MEQ/L (98-107); CREATININE FOR GFR 1.19 MG/DL (0.70-1.30); GLOMERULAR FILTRATION RATE > 60.0 (>42); GLUCOSE, FASTING 104 MG/DL (70-100); POTASSIUM SERUM 5.5 MEQ/L (3.5-5.1); SODIUM LEVEL 143 MEQ/L (136-145)
== END ==
LOC: M WUC 08:24
PROVIDERS: ATTEND Physician Assistant
DX: E78.5 Hyperlipidemia, unspecified (principal)

== ENCOUNTER → 2018-11-01 | Outpatient (CLI) | payer MEDICARE, OTHER ==
[2018-11-01 17:24] LABS: CREATININE FOR GFR 1.33 MG/DL (0.70-1.30); GLOMERULAR FILTRATION RATE 56.1 (>42); POTASSIUM SERUM 4.8 MEQ/L (3.5-5.1)
== END ==
LOC: M WUC 12:18
PROVIDERS: ATTEND Physician Assistant
DX: E78.5 Hyperlipidemia, unspecified (principal)

== ENCOUNTER → 2019-03-07 | Outpatient (CLI) | payer MEDICARE, OTHER ==
--- NOTE | 2019-03-07 12:21 | REP ---
Clinical: Stenosis. Technique: Garcia scale and color Doppler evaluation using linear high frequency transducer Findings: Two-dimensional garcia scale and color images demonstrate mixed atheromatous plaquing of the common carotid arteries and proximal internal/external carotid arteries (left greater than right). Color Doppler interrogation demonstrates arterial wave patterns with spectral broadening. Normal flow direction is appreciated in the bilateral vertebral arteries. RIGHT (cm/s) LEFT (cm/s) ICA peak systolic velocity 66.3 50.7 ICA diastolic velocity 31.3 19.3 ECA peak systolic velocity 52.5 45.1 CCA peak systolic velocity 63.5 87.3 ICA/CCA ratio 1.05 0.58 Impression: No hemodynamically significant areas of narrowing or stenosis appreciated. Based on set standards narrowing falls within the less than 50% range. Electronically Signed by Quan Gross MD 03/07/2019 12:11 P
== END ==
LOC: M RAD 10:35
PROVIDERS: ATTEND Physician Assistant
DX: I65.23 Occlusion and stenosis of bilateral carotid arteries (principal)

== ENCOUNTER → 2019-03-27 | Outpatient (CLI) | payer MEDICARE, OTHER ==
[2019-03-27 10:25] LABS: BASO % 0.2 % (0.0-1.0); EOS # 0.1 10^3/uL (0.0-0.5); EOS % 2.6 % (0.0-3.0); HEMATOCRIT 39.4 % (42.0-52.0); HEMOGLOBIN 12.3 g/dl (13.5-17.5); LYMPH # 1.5 10^3/uL (1.5-5.0); LYMPH % 27.7 % (24.0-44.0); MEAN CORPUSCULAR HGB CONC 31.2 g/dl (32.0-36.5); MEAN CORPUSCULAR VOLUME 89.5 fl (80.0-96.0); MONO # 0.5 10^3/uL (0.0-0.8); MONO % 9.3 % (0.0-5.0); NEUTROPHILS # 3.3 10^3/uL (1.5-8.5); NEUTROPHILS % 59.7 % (36.0-66.0); PLATELET COUNT, AUTOMATED 273 10^3/uL (150-450); WHITE BLOOD COUNT 5.5 10^3/uL (4.0-10.0)
[2019-03-27 10:49] LABS: HEMOGLOBIN A1c 6.6 %
[2019-03-27 10:59] LABS: ALBUMIN 3.7 GM/DL (3.2-5.2); BILIRUBIN,TOTAL 0.4 MG/DL (0.2-1.0); CALCIUM LEVEL 9.2 MG/DL (8.8-10.2); CHOLESTEROL RISK RATIO 2.739 (<5); CREATININE FOR GFR 1.36 MG/DL (0.70-1.30); GLOMERULAR FILTRATION RATE 54.5 (>42); POTASSIUM SERUM 5.2 MEQ/L (3.5-5.1); TOTAL PROTEIN 6.8 GM/DL (6.4-8.2)
[2019-03-27 11:06] LABS: TOTAL 25(OH) VITAMIN D 40.9 NG/ML (30.0-100.0)
[2019-03-27 11:12] LABS: CREATININE, URINE 25.4 MG/DL; MALB URINE SIEMENS 8.8 MG/L; MAU/CREAT RATIO 34.6 MCG/MG (0.0-30.0)
== END ==
LOC: M WUC 08:39
PROVIDERS: ATTEND Physician Assistant
DX: E78.2 Mixed hyperlipidemia (principal); K21.9 Gastro-esophageal reflux disease without esophagitis; E11.40 Type 2 diabetes mellitus with diabetic neuropathy, unspecified; E55.9 Vitamin D deficiency, unspecified

== ENCOUNTER → 2019-05-04 | Outpatient (REF) | payer MEDICARE, OTHER ==
[2019-05-04 18:55] LABS: FERRITIN 6 NG/ML (26-388); IRON (FE) 41 UG/DL (65-175); PERCENT SATURATION 7.8 % (19.7-50.0); TOTAL IRON BINDING CAPACITY 525 UG/DL (250-450)
[2019-05-04 19:04] LABS: VITAMIN B12 LEVEL 333 PG/ML
[2019-05-08 14:36] LABS: ALBUMIN 4.32 GM/DL (3.29-5.55); ALBUMIN % 61.7 % (55.8-66.1); ALPHA-1-GLOBULIN % 3.9 % (2.9-4.9); ALPHA-1-GLOBULINS 0.27 GM/DL (0.17-0.41); ALPHA-2-GLOBULINS 0.61 GM/DL (0.42-0.99); ALPHA-2-GLOBULINS % 8.7 % (7.1-11.8); BETA-1-GLOBULINS 0.59 GM/DL (0.28-0.60); BETA-1-GLOBULINS % 8.4 % (4.7-7.2); BETA-2-GLOBULINS 0.39 GM/DL (0.19-0.55); BETA-2-GLOBULINS % 5.5 % (3.2-6.5); GAMMA GLOBULIN % 11.8 % (11.1-18.8); GAMMA GLOBULINS 0.83 GM/DL (0.65-1.58)
[2019-05-09 00:06] LABS: FREE KAPPA LIGHT CHAINS SERUM 25.3 mg/L (3.3-19.4); KAPPA/LAMBDA RATIO SERUM 1.33 (0.26-1.65)
== END ==
LOC: M LAB REF 17:24
PROVIDERS: ATTEND Internal Medicine Nephrology
DX: D64.9 Anemia, unspecified (principal)

== ENCOUNTER → 2019-05-11 | Outpatient (CLI) | payer MEDICARE, OTHER ==
--- NOTE | 2019-05-11 08:34 | REP ---
Clinical: Hypertension and chronic medical renal disease. Technique: Garcia scale and color Doppler evaluation of the kidneys and renal vasculature using curved array transducer. Findings: The kidneys demonstrate increased parenchymal echogenicity and multiple bilateral cysts without hydronephrosis. Right kidney measures 10.5 x 5.7 x 4.9 cm with the largest cyst measuring 5.7 cm. Left kidney measures 12.4 x 5.5 x 6.0 cm with the largest cyst identified measuring 5.0 cm. Heterogeneous prostate gland with central calcifications measures 5.0 x 3.7 x 5.1 cm. Color Doppler evaluation of the renal vasculature is severely limited and essentially nondiagnostic due to extensive overlying bowel gas. Renal arterial velocities and associated renal aortic ratios could not be obtained. Right Kidney: Resistive indices: 0.68 - 0.69 . Acceleration times: 0.048 - 0.070 . Left kidney: Resistive indices: 0.70 - 0.73 . Acceleration times: 0.052 - 0.060 . Impression: 1. Kidneys demonstrate multiple bilateral cysts and increased echogenicity consistent with chronic renal disease. No hydronephrosis. 2. Evaluation of the main renal arteries is incomplete due to overlying bowel gas. Intra renal vasculature appears relatively normal. Electronically Signed by Quan Gross MD 05/11/2019 08:25 A
== END ==
LOC: M RAD 07:27
PROVIDERS: ATTEND Internal Medicine Nephrology
DX: N18.3 Chronic kidney disease, stage 3 (moderate) (principal); E11.22 Type 2 diabetes mellitus with diabetic chronic kidney disease; I12.9 Hypertensive chronic kidney disease with stage 1 through stage 4 chronic kidney disease, or unspecified chronic kidney disease; N28.1 Cyst of kidney, acquired

== ENCOUNTER → 2019-05-15 | Outpatient (REF) | payer MEDICARE, OTHER | LOC: M LAB REF 13:22 | PROVIDERS: ATTEND Internal Medicine Nephrology | DX: N18.3 Chronic kidney disease, stage 3 (moderate) (principal); D50.9 Iron deficiency anemia, unspecified; E11.22 Type 2 diabetes mellitus with diabetic chronic kidney disease ==

== ENCOUNTER → 2019-09-20 | Outpatient (CLI) | payer MEDICARE, OTHER ==
[2019-09-20 09:57] LABS: HEMOGLOBIN A1c 6.7 %
[2019-09-20 10:20] LABS: CALCIUM LEVEL 9.1 MG/DL (8.8-10.2); CHOLESTEROL RISK RATIO 3.722 (<5); CREATININE FOR GFR 1.3 MG/DL (0.70-1.30); GLOMERULAR FILTRATION RATE 57.4 (>42); POTASSIUM SERUM 4.3 MEQ/L (3.5-5.1)
== END ==
LOC: M WUC 08:07
PROVIDERS: ATTEND Physician Assistant
DX: E87.5 Hyperkalemia (principal); E11.40 Type 2 diabetes mellitus with diabetic neuropathy, unspecified; E78.2 Mixed hyperlipidemia

== ENCOUNTER → 2019-11-07 | Outpatient (CLI) | payer MEDICARE, OTHER ==
--- NOTE | 2019-11-07 15:51 | REP ---
Clinical: Aortic aneurysm. Technique: Axial noncontrast images from the thoracic inlet to the mid abdomen with coronal and sagittal re-formations. Comparison: 09/02/2017. Findings: Thoracic aorta demonstrates mild stable atherosclerotic changes and stable dilatation to the ascending aorta measuring 4.6 cm maximal diameter. Atherosclerotic changes to the coronary arteries are also identified without cardiomegaly or pericardial effusion. Lung candelaria are essentially clear and without consolidation or significant nodule/mass. Calcified granuloma in the right upper lobe again identified. No effusion. No pneumothorax. No obvious adenopathy. Surrounding musculoskeletal structures are intact. Limited upper abdomen demonstrates normal bilateral adrenal glands and renal hypodensities suggesting cysts. Impression: 1. Stable dilatation to the ascending thoracic aorta measuring 4.6 cm maximal diameter along with atherosclerotic changes. 2. No acute mediastinal or pleuroparenchymal process. Electronically Signed by Quan Gross MD 11/07/2019 03:42 P
== END ==
LOC: M RAD 15:17
PROVIDERS: ATTEND Nurse Practitioner Family
DX: I71.4 Abdominal aortic aneurysm, without rupture (principal)

== ENCOUNTER → 2020-03-11 | Outpatient (CLI) | payer MEDICARE, OTHER ==
[~2020-03-11] MED LIST changes: -ASPI81TA85 PO; +ASPI81TA86 PO
[2020-03-11 10:21] LABS: EOS # 0.1 10^3/uL (0.0-0.5); EOS % 2.3 % (0.0-3.0); HEMATOCRIT 45.1 % (42.0-52.0); HEMOGLOBIN 14.8 g/dl (13.5-17.5); LYMPH # 1.7 10^3/uL (1.5-5.0); LYMPH % 31.5 % (24.0-44.0); MEAN CORPUSCULAR HEMOGLOBIN 31.5 pg (27.0-33.0); MEAN CORPUSCULAR HGB CONC 32.8 g/dl (32.0-36.5); MONO # 0.5 10^3/uL (0.0-0.8); MONO % 9.8 % (0.0-5.0); NEUTROPHILS # 2.9 10^3/uL (1.5-8.5); PLATELET COUNT, AUTOMATED 246 10^3/uL (150-450); WHITE BLOOD COUNT 5.2 10^3/uL (4.0-10.0)
[2020-03-11 10:42] LABS: ALBUMIN 3.7 GM/DL (3.2-5.2); BILIRUBIN,TOTAL 0.5 MG/DL (0.2-1.0); CALCIUM LEVEL 9.2 MG/DL (8.8-10.2); CHOLESTEROL RISK RATIO 3.186 (<5); CREATININE FOR GFR 1.27 MG/DL (0.70-1.30); GLOMERULAR FILTRATION RATE 58.9 (>42); POTASSIUM SERUM 4.5 MEQ/L (3.5-5.1); TOTAL PROTEIN 6.9 GM/DL (6.4-8.2)
[2020-03-11 10:51] LABS: CREATININE, URINE 74.7 MG/DL; MALB URINE SIEMENS 6.7 MG/L; MAU/CREAT RATIO 8.9 MCG/MG (0.0-30.0)
[2020-03-11 11:00] LABS: TOTAL 25(OH) VITAMIN D 35.2 NG/ML (30.0-100.0)
== END ==
LOC: M WUC 08:05
PROVIDERS: ATTEND Physician Assistant
DX: K21.9 Gastro-esophageal reflux disease without esophagitis (principal); E11.40 Type 2 diabetes mellitus with diabetic neuropathy, unspecified; E55.9 Vitamin D deficiency, unspecified; I35.0 Nonrheumatic aortic (valve) stenosis

== ENCOUNTER → 2020-10-30 | Outpatient (CLI) | payer MEDICARE, OTHER ==
--- NOTE | 2020-10-30 16:12 | REP ---
INDICATION: ASCENDING AORTIC ANEURYSM COMPARISON: Multiple the latest 11/07/2019 TECHNIQUE: Noncontrast enhanced standard helical technique FINDINGS: The maximal AP dimension of the ascending aorta is again seen to be 4.6 cm. Limited evaluation of the thoracic aorta shows no evidence of significant change compared to the prior exam. There is no evidence of mediastinal or hilar adenopathy. There no pleural or pericardial effusions. There is no change in the imaged upper abdomen. Once again, there are multiple renal cysts some of which are partially imaged. Bone window technique throughout the exam shows no significant change compared to the prior exam. Evaluation of the lung candelaria shows no new abnormal nodules, masses, or opacities. Incidental calcified granulomas are again noted in the right upper lobe. IMPRESSION: No significant change compared to the prior exam with findings as described above. <Electronically signed by Arthur Bishop > 10/30/20 [id number]
== END ==
LOC: M RAD 14:58
PROVIDERS: ATTEND Thoracic Surgery (Cardiothoracic Vascular Surgery)
DX: I71.2 Thoracic aortic aneurysm, without rupture (principal); N28.1 Cyst of kidney, acquired

== ENCOUNTER → 2021-04-23 | Outpatient (CLI) | payer MEDICARE, OTHER ==
[2021-04-23 12:36] LABS: ALBUMIN 3.9 GM/DL (3.2-5.2); BILIRUBIN,TOTAL 0.5 MG/DL (0.2-1.0); CALCIUM LEVEL 9.5 MG/DL (8.8-10.2); CHOLESTEROL RISK RATIO 3.763 (<5); CREATININE FOR GFR 1.48 MG/DL (0.70-1.30); GLOMERULAR FILTRATION RATE 49.2 (>42); POTASSIUM SERUM 4.5 MEQ/L (3.5-5.1); TOTAL PROTEIN 6.8 GM/DL (6.4-8.2)
[2021-04-23 12:45] LABS: CREATININE, URINE 77.5 MG/DL; MALB URINE SIEMENS 7.6 MG/L; MAU/CREAT RATIO 9.8 MCG/MG (0.0-30.0)
[2021-04-23 13:03] LABS: HEMOGLOBIN A1c 6.3 %
== END ==
LOC: M WUC 08:53
PROVIDERS: ATTEND Nurse Practitioner Family
DX: E11.40 Type 2 diabetes mellitus with diabetic neuropathy, unspecified (principal); E78.2 Mixed hyperlipidemia

== ENCOUNTER → 2021-07-02 | Outpatient (REF) | payer MEDICARE, OTHER | LOC: M LAB REF 12:36 | PROVIDERS: ATTEND Nurse Practitioner Family | DX: N18.2 Chronic kidney disease, stage 2 (mild) (principal) ==

== ENCOUNTER → 2021-07-08 | Outpatient (CLI) | payer MEDICARE, OTHER | LOC: M WUC 15:55 | PROVIDERS: ATTEND Physician Assistant | DX: M25.572 Pain in left ankle and joints of left foot (principal); M19.072 Primary osteoarthritis, left ankle and foot ==

== ENCOUNTER → 2021-11-12 | Outpatient (CLI) | payer MEDICARE, OTHER | LOC: M RAD 13:40 | PROVIDERS: ATTEND Nurse Practitioner Family | DX: Z12.2 Encounter for screening for malignant neoplasm of respiratory organs (principal); Z87.891 Personal history of nicotine dependence; J84.10 Pulmonary fibrosis, unspecified; R91.8 Other nonspecific abnormal finding of lung field ==

== ENCOUNTER → 2021-11-13 | Outpatient (CLI) | payer MEDICARE, OTHER ==
[2021-11-13 13:15] LABS: HEMOGLOBIN A1c 6.2 %
[2021-11-13 13:27] LABS: ALBUMIN 3.4 GM/DL (3.2-5.2); BILIRUBIN,TOTAL 0.4 MG/DL (0.2-1.0); CREATININE FOR GFR 1.34 MG/DL (0.70-1.30); GLOMERULAR FILTRATION RATE 55.2 (>42); POTASSIUM SERUM 4.1 MEQ/L (3.5-5.1); TOTAL PROTEIN 6.2 GM/DL (6.4-8.2)
== END ==
LOC: M WUC 09:05
PROVIDERS: ATTEND Nurse Practitioner Family
DX: E11.40 Type 2 diabetes mellitus with diabetic neuropathy, unspecified (principal)

== ENCOUNTER → 2021-12-30 | Outpatient (CLI) | payer MEDICARE, OTHER | LOC: M RAD 07:49 | PROVIDERS: ATTEND Registered Nurse | DX: I71.2 Thoracic aortic aneurysm, without rupture (principal); R91.8 Other nonspecific abnormal finding of lung field ==

== ENCOUNTER → 2022-01-19 | Outpatient (CLI) | payer MEDICARE, OTHER ==
[~2022-01-19] MED LIST changes: +ACET-683 PO; +ASPI81TA26 PO; +ATOR40TA75 PO; +FERR32TA PO; +LISI5TAB11 PO; +METF-838 PO; +OMEP40CA5 PO; +PRESCAP PO; +VITA1CAP25 PO; +patient comment
== END ==
LOC: M LABSMTC 10:25
PROVIDERS: ATTEND Anesthesiology
DX: Z01.818 Encounter for other preprocedural examination (principal); Z11.52 Encounter for screening for COVID-19

== ENCOUNTER 2022-01-21 21:45 | Emergency (ER) | payer MEDICARE, OTHER ==
[~2022-01-21] VITALS: Ht 167.6 cm; Wt 92.3 kg
[~2022-01-21 21:45] MED LIST changes: -ACET-683 PO; -patient comment
[2022-01-21] MEDS ORDERED: ETOMIDATE INJ 20MG/10ML VIAL ONE (21:46)
[2022-01-21] MEDS ORDERED: SUCCINYLCHOLINE 100 MG/5 ML SYRINGE (J0330) ONE (21:46)
[2022-01-21] MEDS ORDERED: FAMOTIDINE 20MG/2ML VIAL IVP ONE (21:55)
[2022-01-21] MEDS ORDERED: C1 ESTERASE INHIBITOR IV ONE (21:55)
[2022-01-21] MEDS ORDERED: methylPREDNISolone 125MG 2ML VIAL IV ONE (21:55)
[2022-01-21] MEDS ORDERED: KETAMINE HCL 200 MG/20 ML VIAL IV ONE (22:05)
[2022-01-21] MEDS ORDERED: KETAMINE HCL 200 MG/20 ML VIAL As Ordered ONE (22:05)
[2022-01-21 22:08] LABS: BASO % 0.1 % (0.0-1.0); EOS # 0.4 10^3/uL (0.0-0.5); EOS % 3.2 % (0.0-3.0); HEMATOCRIT 44.9 % (42.0-52.0); HEMOGLOBIN 15.2 g/dl (13.5-17.5); LYMPH % 17.8 % (24.0-44.0); MEAN CORPUSCULAR HEMOGLOBIN 31.7 pg (27.0-33.0); MEAN CORPUSCULAR HGB CONC 33.9 g/dl (32.0-36.5); MEAN CORPUSCULAR VOLUME 93.7 fl (80.0-96.0); MONO # 0.9 10^3/uL (0.0-0.8); MONO % 8.2 % (2.0-8.0); NEUTROPHILS # 8.1 10^3/uL (1.5-8.5); NEUTROPHILS % 70.2 % (36.0-66.0); PLATELET COUNT, AUTOMATED 225 10^3/uL (150-450); RED BLOOD COUNT 4.79 10^6/uL (4.30-6.10); WHITE BLOOD COUNT 11.5 10^3/uL (4.0-10.0)
[2022-01-21] MEDS ORDERED: PROPOFOL 1,000 MG/100 ML VIAL As Ordered ONE ×2 (22:09→23:49)
[2022-01-21] MEDS: propofoL 1,000 MG in IV 1 EA IV SCH ×2 (22:10→23:59)
[2022-01-21] MEDS ORDERED: ROCURONIUM BROMIDE 50 MG/5 ML VIAL IV SCH (22:20)
[2022-01-21 22:38] LABS: ERYTHROCYTE SEDIMENTATION RATE 5 mm/hr (0-20)
[2022-01-21 22:51] LABS: ALT/SGPT 26 U/L (12-78); BILIRUBIN,DIRECT 0.2 MG/DL (0.0-0.2); BILIRUBIN,TOTAL 0.8 MG/DL (0.2-1.0); BLOOD UREA NITROGEN 15 MG/DL (7-18); CALCIUM LEVEL 9.5 MG/DL (8.8-10.2); CARBON DIOXIDE LEVEL 28 MEQ/L (21-32); CHLORIDE LEVEL 105 MEQ/L (98-107); COMPLEMENT C4 30 MG/DL (10-40); CREATININE FOR GFR 1.18 MG/DL (0.70-1.30); GLOMERULAR FILTRATION RATE > 60.0 (>42); GLUCOSE, FASTING 93 MG/DL (70-100); POTASSIUM SERUM 4.6 MEQ/L (3.5-5.1); SODIUM LEVEL 137 MEQ/L (136-145); TOTAL PROTEIN 7.3 GM/DL (6.4-8.2)
[2022-01-21] MEDS ORDERED: LIDOCAINE W/EPINEPHRINE 1% 20ML VIAL As Ordered ONE (23:56)
[2022-01-22] MEDS ORDERED: ISOVUE-370 76% 100ML VIAL As Ordered ONE (00:06)
[2022-01-22] MEDS ORDERED: patient comment (00:08)
[2022-01-22] MEDS ORDERED: ACET-683 PO (00:08)
[2022-01-22] MEDS ORDERED: HOME MED LIST COMPLETE! XX SCH (00:10)
[2022-01-22] MEDS ORDERED: ceFAZolin SOD 2 GM in IV 1 EA IV ONE (00:40)
[2022-01-22] MEDS ORDERED: ROCURONIUM BROMIDE 50 MG/5 ML VIAL IV ONE (00:40)
[2022-01-22 01:22] LABS: RSV AMPLIFICATION NEGATIVE (NEGATIVE)
[2022-01-22] MEDS: propofoL 1,000 MG in IV 1 EA IV SCH (02:00)
[2022-01-22] MEDS ORDERED: LIDOCAINE W/EPINEPHRINE 1% 20ML VIAL SC ONE (02:35)
[2022-01-22] MEDS ORDERED: PROPOFOL 1,000 MG/100 ML VIAL As Ordered ONE (03:23)
[2022-01-22 04:18] VITALS: O2SAT 100
[2022-01-22 05:05] VITALS: BP 117/78
[2022-01-26 17:07] LABS: C1 ESTER INHIB. NON FUNCTIONAL 35 mg/dL (21-39); C1 ESTERASE INHIB. FUNCTIONAL > 100 (.); COAGULATION FACTOR XII ACTIVIT 107 % (50-150)
== END 2022-01-22 05:08 | disposition short-term general hospital (02) ==
LOC: M ED 21:45 → EDBD 21:45 → M ED 01-22 05:08
DX: T78.3XXA Angioneurotic edema, initial encounter (principal); J93.9 Pneumothorax, unspecified; J98.2 Interstitial emphysema; R00.0 Tachycardia, unspecified; E11.9 Type 2 diabetes mellitus without complications; I10 Essential (primary) hypertension; K21.9 Gastro-esophageal reflux disease without esophagitis; F17.290 Nicotine dependence, other tobacco product, uncomplicated; Z79.82 Long term (current) use of aspirin; Z79.84 Long term (current) use of oral hypoglycemic drugs; Z79.899 Other long term (current) drug therapy; Z88.0 Allergy status to penicillin; Z88.8 Allergy status to other drugs, medicaments and biological substances
CPT/HCPCS: 31500; 32556; 36600; 43752; 51702; 70498; 71045; 71260; 74177; 80048; 80076; 82803; 83519; 85025; 85280; 85652; 86140; 86160; 86161; 86850; 86900; 86901; 87631; 93041; 94760; 96365; 96366; 96367; 96375; 96376; 99285; J0330; J0597; J0690; J2930; Q9967

== ENCOUNTER 2022-03-30 00:24 | Emergency (ER) | payer MEDICARE, OTHER ==
[~2022-03-30] VITALS: Ht 165.1 cm; Wt 91.0 kg
[~2022-03-30 00:24] MED LIST changes: +ACET-683 PO; +patient comment
[2022-03-30] MEDS ORDERED: QUET1TAB17 PO (00:45)
[2022-03-30 01:21] LABS: BASO % 0.1 % (0.0-1.0); EOS # 0.1 10^3/uL (0.0-0.5); EOS % 1.5 % (0.0-3.0); HEMATOCRIT 27.4 % (42.0-52.0); HEMOGLOBIN 8.5 g/dl (13.5-17.5); LYMPH # 1.9 10^3/uL (1.5-5.0); LYMPH % 21.2 % (24.0-44.0); MEAN CORPUSCULAR HEMOGLOBIN 29.2 pg (27.0-33.0); MEAN CORPUSCULAR VOLUME 94.2 fl (80.0-96.0); MONO % 10.9 % (2.0-8.0); NEUTROPHILS % 65.9 % (36.0-66.0); PLATELET COUNT, AUTOMATED 338 10^3/uL (150-450); RED BLOOD COUNT 2.91 10^6/uL (4.30-6.10); WHITE BLOOD COUNT 9.1 10^3/uL (4.0-10.0)
[2022-03-30 01:32] LABS: INR 1.04; PROTHROMBIN TIME 13.8 SECONDS (12.5-14.5)
[2022-03-30 02:05] LABS: ALBUMIN 2.7 G/DL (3.2-5.2); ALT/SGPT 13 U/L (7.0-40); BILIRUBIN,DIRECT 0.1 MG/DL (<0.4); BILIRUBIN,TOTAL 0.3 MG/DL (0.3-1.2); BLOOD UREA NITROGEN 30 MG/DL (9-23); CALCIUM LEVEL 8.3 MG/DL (8.3-10.6); CARBON DIOXIDE LEVEL 22 MMOL/L (20-31); CHLORIDE LEVEL 111 MMOL/L (98-107); CK-MB VALUE MASS < 1.0 NG/ML (<3.6); CPK CREATINE PHOSPHOKINASE 28 U/L (46-171); CREATININE FOR GFR 1.71 MG/DL (0.70-1.30); GLOMERULAR FILTRATION RATE 41.5 (>42); GLUCOSE, FASTING 122 MG/DL (74-106); MB/CK RELATIVE INDEX 3.57 (< OR =4); POTASSIUM SERUM 3.7 MMOL/L (3.5-5.1); SODIUM LEVEL 144 MMOL/L (136-145); THYROID STIMULATING HORMONE 1.371 uIU/ML (0.55-4.78); TOTAL PROTEIN 5.8 G/DL (5.7-8.2)
[2022-03-30 02:28] LABS: FERRITIN 46.9 NG/ML (10.5-307.3); IRON (FE) 22 UG/DL (65-175); PERCENT SATURATION 7.6 % (19.7-50.0); TOTAL IRON BINDING CAPACITY 290 UG/DL (250-425); VITAMIN B12 LEVEL 600 PG/ML (211-911)
[2022-03-30] MEDS ORDERED: NS 1,000 ML IV ONE (02:40)
[2022-03-30] MEDS ORDERED: ISOVUE-370 76% 100ML VIAL As Ordered ONE (02:48)
[2022-03-30 03:23] LABS: CK-MB VALUE MASS < 1.0 NG/ML (<3.6); CPK CREATINE PHOSPHOKINASE 26 U/L (46-171); MB/CK RELATIVE INDEX 3.84 (< OR =4)
[2022-03-30] MEDS: METOPROLOL 5 MG/5 ML VIAL IV SCH ×3 (03:32→03:42)
[2022-03-30] MEDS ORDERED: METOPROLOL TART 50 MG TAB PO ONE (04:00)
[2022-03-30] MEDS ORDERED: FUROSEMIDE 40MG/4ML VIAL (J1940) IV ONE (05:20)
[2022-03-30 05:38] VITALS: BP 133/98
[2022-03-30 10:02] VITALS: BP 105/81
== END 2022-03-30 10:08 | disposition short-term general hospital (02) ==
LOC: M ED 00:24
DX: I48.91 Unspecified atrial fibrillation (principal); I50.89 Other heart failure; M43.16 Spondylolisthesis, lumbar region; I25.10 Atherosclerotic heart disease of native coronary artery without angina pectoris; J18.9 Pneumonia, unspecified organism; I35.9 Nonrheumatic aortic valve disorder, unspecified; J90 Pleural effusion, not elsewhere classified; E11.9 Type 2 diabetes mellitus without complications; I10 Essential (primary) hypertension; E78.5 Hyperlipidemia, unspecified; Z79.82 Long term (current) use of aspirin; Z79.84 Long term (current) use of oral hypoglycemic drugs; Z79.899 Other long term (current) drug therapy; Z88.0 Allergy status to penicillin; Z88.8 Allergy status to other drugs, medicaments and biological substances
CPT/HCPCS: 71045; 71275; 74174; 80048; 80076; 82550; 82553; 82607; 82728; 83550; 83880; 84443; 84484; 85025; 85046; 85610; 87486; 87581; 87633; 87798; 93005; 93041; 94760; 96361; 96374; 96375; 99285; J1940; Q9967

== ENCOUNTER 2022-04-11 16:17 | Inpatient (IN) | payer OTHER, MEDICARE ==
[~2022-04-11] VITALS: Ht 170.2 cm; Wt 83.5 kg
[~2022-04-11 16:17] MED LIST changes: +QUET1TAB17 PO
[2022-04-11] MEDS ORDERED: FENO48TA8 PO (16:30)
[2022-04-11] MEDS ORDERED: DILT240C83 PO (16:30)
[2022-04-11] MEDS ORDERED: ELIQ2.5T PO (16:30)
[2022-04-11] MEDS ORDERED: FERR325T19 PO (16:30)
[2022-04-11] MEDS ORDERED: FUROSEMIDE 40MG/4ML VIAL (J1940) IV ONE (17:30)
[2022-04-11 18:19] LABS: EOS # 0.2 10^3/uL (0.0-0.5); EOS % 3.1 % (0.0-3.0); HEMATOCRIT 27.1 % (42.0-52.0); HEMOGLOBIN 8.4 g/dl (13.5-17.5); LYMPH # 1.6 10^3/uL (1.5-5.0); LYMPH % 22.8 % (24.0-44.0); MEAN CORPUSCULAR HEMOGLOBIN 27.4 pg (27.0-33.0); MEAN CORPUSCULAR VOLUME 88.3 fl (80.0-96.0); MONO # 0.8 10^3/uL (0.0-0.8); MONO % 12.3 % (2.0-8.0); NEUTROPHILS # 4.2 10^3/uL (1.5-8.5); NEUTROPHILS % 61.2 % (36.0-66.0); PLATELET COUNT, AUTOMATED 337 10^3/uL (150-450); RED BLOOD COUNT 3.07 10^6/uL (4.30-6.10); WHITE BLOOD COUNT 6.8 10^3/uL (4.0-10.0)
[2022-04-11 18:47] LABS: BILIRUBIN,DIRECT 0.1 MG/DL (<0.4)
[2022-04-11 18:50] LABS: THYROID STIMULATING HORMONE 2.409 uIU/ML (0.55-4.78)
[2022-04-11 19:26] LABS: ALBUMIN 2.3 G/DL (3.2-5.2); BILIRUBIN,TOTAL 0.2 MG/DL (0.3-1.2); CALCIUM LEVEL 8.5 MG/DL (8.3-10.6); CREATININE FOR GFR 2.38 MG/DL (0.70-1.30); GLOMERULAR FILTRATION RATE 28.4 (>42); POTASSIUM SERUM 3.9 MMOL/L (3.5-5.1); TOTAL PROTEIN 5.8 G/DL (5.7-8.2)
[2022-04-11] MEDS ORDERED: APIXABAN 2.5 MG TAB (ELIQUIS) PO ONE (20:55)
[2022-04-11] MEDS ORDERED: ATORVASTATIN 20 MG TAB PO ONE (20:55)
[2022-04-11] MEDS ORDERED: QUEtiapine FUMARATE 25 MG TAB PO SCH (21:00)
[2022-04-11] MEDS ORDERED: METO1TAB32 PO (21:39)
[2022-04-11] MEDS ORDERED: HOME MED LIST COMPLETE! XX SCH (21:40)
[2022-04-11] MEDS ORDERED: GLUCOSE 4GM CHEW TABLET PO PRN (23:20)
[2022-04-11] MEDS ORDERED: DEXTROSE 50% 50 ML SYRINGE IV PRN (23:20)
[2022-04-11] MEDS ORDERED: GLUCAGON INJ 1MG VIAL SC PRN (23:20)
[2022-04-12] MEDS ORDERED: NS 1,000 ML IV SCH (00:45)
[2022-04-12 04:14] LABS: APPEARANCE, URINE MANUAL HAZY (CLEAR); COLOR, URINE MANUAL LT YELLOW (YELLOW)
[2022-04-12 04:15] LABS: BILIRUBIN, URINE MANUAL NEGATIVE (NEGATIVE); BLOOD URINE MANUAL POSITIVE (NEGATIVE); GLUCOSE, URINE (UA) MANUAL NEGATIVE (NEGATIVE); KETONE, URINE MANUAL NEGATIVE (NEGATIVE); NITRITE, URINE MANUAL NEGATIVE (NEGATIVE); PROTEIN, URINE MANUAL 2+ mg/dL (NEGATIVE); UROBILINOGEN, URINE MANUAL NORMAL (NORMAL)
[2022-04-12 04:16] LABS: LEUKOCYTE ESTERASE, URINE MAN NEGATIVE (NEGATIVE)
[2022-04-12 04:26] LABS: RBC, URINE TNTC /hpf (0-3)
[2022-04-12 04:27] LABS: AMORPHOUS SEDIMENT, URINE SMALL AMOUNT (NEGATIVE); BACTERIA, URINE NONE SEEN; HYALINE CAST, URINE NONE SEEN /lpf (0-1); SQUAMOUS EPITHELIAL CELL URINE NONE SEEN /hpf (SMALL AMT)
[2022-04-12 04:37] LABS: TOTAL PROTEIN,RANDOM URINE 103.6 MG/DL (0.0-14.0)
[2022-04-12 04:42] LABS: CREATININE,RANDOM URINE 32.5 MG/DL
[2022-04-12 04:55] VITALS: BP 139/77
[2022-04-12 06:40] LABS: HEMATOCRIT 26.5 % (42.0-52.0); HEMOGLOBIN 8.5 g/dl (13.5-17.5)
[2022-04-12 07:04] LABS: MAGNESIUM LEVEL 1.5 MG/DL (1.8-2.4)
[2022-04-12 07:05] LABS: CALCIUM LEVEL 8.6 MG/DL (8.3-10.6); CREATININE FOR GFR 2.5 MG/DL (0.70-1.30); GLOMERULAR FILTRATION RATE 26.8 (>42)
[2022-04-12] MEDS: INSULIN LISPRO (NovoLOG) PER UNIT SC SCH ×3 (07:30→17:30)
[2022-04-12 07:49] VITALS: BP 143/82
[2022-04-12] MEDS ORDERED: MAG SULF 1GM/100ML (MAG RUN) 1 GM in IV 1 EA IV ONE (08:00)
[2022-04-12] MEDS: APIXABAN 2.5 MG TAB (ELIQUIS) PO SCH ×2 (08:22→20:07)
[2022-04-12] MEDS: OMEPRAZOLE 20MG CAP PO SCH (08:22)
[2022-04-12] MEDS: ASPIRIN 81MG ENTERIC TABLET PO SCH (08:22)
[2022-04-12] MEDS: FENOFIBRATE 48MG TABLET (TRICOR) PO SCH (08:23)
[2022-04-12] MEDS: OCUVITE 1 TAB PO SCH (08:23)
[2022-04-12] MEDS: FERROUS SULFATE 325MG TAB PO SCH (08:23)
[2022-04-12] MEDS ORDERED: INSUHUMDS SC (11:52)
[2022-04-12 12:00] VITALS: BP 144/84
[2022-04-12 16:00] VITALS: BP 129/70
[2022-04-12 19:44] VITALS: BP 141/81
[2022-04-12] MEDS ORDERED: QUEtiapine FUMARATE 25 MG TAB PO ONE (20:00)
[2022-04-12] MEDS ORDERED: ATORVASTATIN 20 MG TAB PO SCH (21:00)
[2022-04-12] MEDS ORDERED: INSULIN LISPRO (NovoLOG) PER UNIT SC SCH (21:00)
[2022-04-12 23:30] VITALS: BP 143/75
[2022-04-13] VITALS (12 sets, daily range): BP systolic 100–151; BP diastolic 57–101
[2022-04-13] MEDS ORDERED: diphenhydrAMINE 50MG/ML VIAL IV ONE
[2022-04-13] MEDS ORDERED: RAMELTEON 8 MG TAB (ROZEREM) PO ONE
[2022-04-13] MEDS: INSULIN LISPRO (NovoLOG) PER UNIT SC SCH ×2 (07:30→12:17)
[2022-04-13] MEDS: APIXABAN 2.5 MG TAB (ELIQUIS) PO SCH (08:12)
[2022-04-13] MEDS: FENOFIBRATE 48MG TABLET (TRICOR) PO SCH (08:12)
[2022-04-13] MEDS: ASPIRIN 81MG ENTERIC TABLET PO SCH (08:12)
[2022-04-13] MEDS: FERROUS SULFATE 325MG TAB PO SCH (08:12)
[2022-04-13] MEDS: OCUVITE 1 TAB PO SCH (08:12)
[2022-04-13] MEDS: OMEPRAZOLE 20MG CAP PO SCH (08:12)
[2022-04-13] MEDS ORDERED: PREVNAR-20 VACCINE 0.5ML SYRINGE IM.IMMUN ONE (09:00)
[2022-04-13 10:46] LABS: EOS # 0.1 10^3/uL (0.0-0.5); EOS % 2.3 % (0.0-3.0); HEMOGLOBIN 7.6 g/dl (13.5-17.5); LYMPH # 0.8 10^3/uL (1.5-5.0); LYMPH % 15.3 % (24.0-44.0); MEAN CORPUSCULAR HEMOGLOBIN 27.1 pg (27.0-33.0); MEAN CORPUSCULAR HGB CONC 30.4 g/dl (32.0-36.5); MEAN CORPUSCULAR VOLUME 89.3 fl (80.0-96.0); MONO # 0.4 10^3/uL (0.0-0.8); MONO % 7.2 % (2.0-8.0); NEUTROPHILS # 3.9 10^3/uL (1.5-8.5); NEUTROPHILS % 74.6 % (36.0-66.0); PLATELET COUNT, AUTOMATED 331 10^3/uL (150-450); WHITE BLOOD COUNT 5.3 10^3/uL (4.0-10.0)
[2022-04-13 11:07] LABS: CALCIUM LEVEL 8.5 MG/DL (8.3-10.6); CREATININE FOR GFR 2.31 MG/DL (0.70-1.30); GLOMERULAR FILTRATION RATE 29.4 (>42); PERCENT SATURATION 15.2 % (19.7-50.0); POTASSIUM SERUM 4.1 MMOL/L (3.5-5.1)
[2022-04-13 11:11] LABS: FERRITIN 101.5 NG/ML (10.5-307.3)
== END 2022-04-13 14:46 | disposition short-term general hospital (02) | DRG 201 ==
LOC: M ED 16:17 → M ED INP 04-12 02:26 → ENRESERV 04-12 03:39 → CANRESERV 04-12 03:39 → ENRESERV 04-12 04:00 → M PCU 04-12 04:50
PROVIDERS: ADMIT Internal Medicine; ATTEND Internal Medicine
PROC: B246ZZZ Ultrasonography of Right and Left Heart (ICD-10-PCS; principal; 2022-04-11)
DX: I48.92 Unspecified atrial flutter (principal); N17.9 Acute kidney failure, unspecified; J91.8 Pleural effusion in other conditions classified elsewhere; I42.9 Cardiomyopathy, unspecified; E11.22 Type 2 diabetes mellitus with diabetic chronic kidney disease; I13.0 Hypertensive heart and chronic kidney disease with heart failure and stage 1 through stage 4 chronic kidney disease, or unspecified chronic kidney disease; I50.22 Chronic systolic (congestive) heart failure; D64.9 Anemia, unspecified; N14.11 Contrast-induced nephropathy; I35.0 Nonrheumatic aortic (valve) stenosis; N18.30 Chronic kidney disease, stage 3 unspecified; R31.9 Hematuria, unspecified; I45.2 Bifascicular block; G47.33 Obstructive sleep apnea (adult) (pediatric); E78.5 Hyperlipidemia, unspecified; K21.9 Gastro-esophageal reflux disease without esophagitis; M19.90 Unspecified osteoarthritis, unspecified site; H35.30 Unspecified macular degeneration; Z87.891 Personal history of nicotine dependence; Z20.822 Contact with and (suspected) exposure to COVID-19; Z79.82 Long term (current) use of aspirin; Z79.84 Long term (current) use of oral hypoglycemic drugs; Z79.899 Other long term (current) drug therapy; Z88.0 Allergy status to penicillin; Z88.8 Allergy status to other drugs, medicaments and biological substances; R26.89 Other abnormalities of gait and mobility; I48.91 Unspecified atrial fibrillation; I44.2 Atrioventricular block, complete; I31.39 Other pericardial effusion (noninflammatory)

== ENCOUNTER → 2022-04-22 | Outpatient (CLI) | payer MEDICARE, OTHER ==
[~2022-04-22] MED LIST changes: +DILT240C83 PO; +ELIQ2.5T PO; +FENO48TA8 PO; +FERR325T19 PO; +INSUHUMDS SC; +METO1TAB32 PO
[2022-04-22 17:10] LABS: CALCIUM LEVEL 8.1 MG/DL (8.3-10.6); CREATININE FOR GFR 2.1 MG/DL (0.70-1.30); GLOMERULAR FILTRATION RATE 32.8 (>42); POTASSIUM SERUM 4.8 MMOL/L (3.5-5.1)
[2022-04-22 17:12] LABS: BASO % 0.1 % (0.0-1.0); EOS # 0.1 10^3/uL (0.0-0.5); EOS % 1.3 % (0.0-3.0); HEMATOCRIT 28.2 % (42.0-52.0); HEMOGLOBIN 8.3 g/dl (13.5-17.5); LYMPH # 1.7 10^3/uL (1.5-5.0); LYMPH % 19.2 % (24.0-44.0); MEAN CORPUSCULAR HEMOGLOBIN 27.3 pg (27.0-33.0); MEAN CORPUSCULAR HGB CONC 29.4 g/dl (32.0-36.5); MEAN CORPUSCULAR VOLUME 92.8 fl (80.0-96.0); MONO # 0.7 10^3/uL (0.0-0.8); MONO % 7.9 % (2.0-8.0); NEUTROPHILS # 6.3 10^3/uL (1.5-8.5); NEUTROPHILS % 70.4 % (36.0-66.0); PLATELET COUNT, AUTOMATED 377 10^3/uL (150-450); RED BLOOD COUNT 3.04 10^6/uL (4.30-6.10)
== END ==
LOC: M WUC 11:24
PROVIDERS: ATTEND Nurse Practitioner Family
DX: D64.9 Anemia, unspecified (principal)

== ENCOUNTER → 2022-05-08 | Outpatient (CLI) | payer MEDICARE, OTHER ==
[2022-05-08 16:51] LABS: MAGNESIUM LEVEL 1.7 MG/DL (1.8-2.4)
[2022-05-08 16:53] LABS: CALCIUM LEVEL 9.6 MG/DL (8.3-10.6); CREATININE FOR GFR 1.92 MG/DL (0.70-1.30); GLOMERULAR FILTRATION RATE 36.3 (>42); POTASSIUM SERUM 4.9 MMOL/L (3.5-5.1)
[2022-05-08 17:01] LABS: HEMATOCRIT 30.9 % (42.0-52.0); HEMOGLOBIN 9.5 g/dl (13.5-17.5); MEAN CORPUSCULAR HEMOGLOBIN 27.7 pg (27.0-33.0); MEAN CORPUSCULAR HGB CONC 30.7 g/dl (32.0-36.5); MEAN CORPUSCULAR VOLUME 90.1 fl (80.0-96.0); PLATELET COUNT, AUTOMATED 385 10^3/uL (150-450); RED BLOOD COUNT 3.43 10^6/uL (4.30-6.10); WHITE BLOOD COUNT 8.9 10^3/uL (4.0-10.0)
== END ==
LOC: M WUC 11:49
PROVIDERS: ATTEND Physician Assistant
DX: I50.32 Chronic diastolic (congestive) heart failure (principal); I48.0 Paroxysmal atrial fibrillation

== ENCOUNTER → 2022-05-20 | Outpatient (CLI) | payer MEDICARE, OTHER ==
[2022-05-20 13:11] LABS: BASO % 0.3 % (0.0-1.0); EOS # 0.2 10^3/uL (0.0-0.5); EOS % 1.8 % (0.0-3.0); HEMATOCRIT 29.5 % (42.0-52.0); HEMOGLOBIN 9.3 g/dl (13.5-17.5); LYMPH # 2.6 10^3/uL (1.5-5.0); LYMPH % 25.6 % (24.0-44.0); MEAN CORPUSCULAR HEMOGLOBIN 28.2 pg (27.0-33.0); MEAN CORPUSCULAR HGB CONC 31.5 g/dl (32.0-36.5); MEAN CORPUSCULAR VOLUME 89.4 fl (80.0-96.0); MONO # 0.9 10^3/uL (0.0-0.8); MONO % 8.7 % (2.0-8.0); NEUTROPHILS # 6.2 10^3/uL (1.5-8.5); NEUTROPHILS % 61.8 % (36.0-66.0); PLATELET COUNT, AUTOMATED 353 10^3/uL (150-450)
[2022-05-20 13:38] LABS: ALBUMIN 3.2 G/DL (3.2-5.2); BILIRUBIN,TOTAL 0.3 MG/DL (0.3-1.2); CALCIUM LEVEL 9.1 MG/DL (8.3-10.6); CREATININE FOR GFR 1.91 MG/DL (0.70-1.30); GLOMERULAR FILTRATION RATE 36.6 (>42); POTASSIUM SERUM 5.4 MMOL/L (3.5-5.1); TOTAL PROTEIN 6.5 G/DL (5.7-8.2)
== END ==
LOC: M WUC 10:16
PROVIDERS: ATTEND Nurse Practitioner Family
DX: D64.9 Anemia, unspecified (principal); E11.40 Type 2 diabetes mellitus with diabetic neuropathy, unspecified

== ENCOUNTER → 2022-05-26 | Outpatient (REF) | payer MEDICARE, OTHER ==
[2022-05-26 18:17] LABS: PERCENT SATURATION 8.7 % (19.7-50.0)
== END ==
LOC: M LAB REF 16:59
PROVIDERS: ATTEND Nurse Practitioner Family
DX: D50.9 Iron deficiency anemia, unspecified (principal)

== ENCOUNTER 2022-06-01 09:44 | Outpatient (CLI) | payer MEDICARE, OTHER ==
[~2022-06-01] VITALS: Ht 167.6 cm; Wt 86.3 kg
[~2022-06-01 09:44] MED LIST changes: +ALBUTEROL SULFATE 2.5MG/0.5ML INH NEB SOLN INH PRN; +EPINEPHrine INJ 1 MG/ML 1ML AMP IM PRN; +FERRIC CARBOXYMALTOSE INJ 750 MG in NS 250 ML (>50kg) IV ONE; +NS 1,000 ML IV SCH; +diphenhydrAMINE 50MG/ML VIAL IV PRN; +methylPREDNISolone 125MG 2ML VIAL IV PRN
[2022-06-01 09:50] VITALS: BP 129/80
[2022-06-01 11:45] VITALS: BP 125/83
== END 2022-06-01 11:45 | disposition home or self-care (01) ==
LOC: M INFU 09:44
PROVIDERS: ATTEND Internal Medicine Nephrology
DX: D50.9 Iron deficiency anemia, unspecified (principal); Z88.0 Allergy status to penicillin; Z88.8 Allergy status to other drugs, medicaments and biological substances
CPT/HCPCS: 96365; 96366; J1439

== ENCOUNTER 2022-06-08 10:00 | Outpatient (CLI) | payer MEDICARE, OTHER ==
[~2022-06-08] VITALS: Ht 165.1 cm; Wt 86.3 kg
[2022-06-08 10:00] VITALS: BP 136/81
[2022-06-08 11:30] VITALS: BP 113/60
== END 2022-06-08 11:30 | disposition home or self-care (01) ==
LOC: M INFU 10:00
PROVIDERS: ATTEND Internal Medicine Nephrology
DX: D50.9 Iron deficiency anemia, unspecified (principal); Z88.0 Allergy status to penicillin; Z88.8 Allergy status to other drugs, medicaments and biological substances
CPT/HCPCS: 96365; J1439

== ENCOUNTER → 2022-07-01 | Outpatient (CLI) | payer MEDICARE, OTHER ==
[~2022-07-01] MED LIST changes: -ALBUTEROL SULFATE 2.5MG/0.5ML INH NEB SOLN INH PRN; +DILT-67; -EPINEPHrine INJ 1 MG/ML 1ML AMP IM PRN; -FERRIC CARBOXYMALTOSE INJ 750 MG in NS 250 ML (>50kg) IV ONE; +FLEC25TA; +METO1TAB32; -NS 1,000 ML IV SCH; +TORS5TAB2; -diphenhydrAMINE 50MG/ML VIAL IV PRN; -methylPREDNISolone 125MG 2ML VIAL IV PRN
== END ==
LOC: M RAD 10:54
PROVIDERS: ATTEND Physician Assistant
DX: S49.91XA Unspecified injury of right shoulder and upper arm, initial encounter (principal); W19.XXXA Unspecified fall, initial encounter; Y92.9 Unspecified place or not applicable; Y93.9 Activity, unspecified; Y99.9 Unspecified external cause status

== ENCOUNTER → 2022-07-15 | Outpatient (REF) | payer MEDICARE, OTHER ==
[2022-07-15 17:33] LABS: POTASSIUM SERUM 5.1 MMOL/L (3.5-5.1)
== END ==
LOC: M LAB REF 16:50
PROVIDERS: ATTEND Nurse Practitioner Family
DX: N18.31 Chronic kidney disease, stage 3a (principal)

== ENCOUNTER → 2022-07-29 | Outpatient (CLI) | payer MEDICARE, OTHER ==
[2022-07-29 16:52] LABS: EOS # 0.1 10^3/uL (0.0-0.5); EOS % 1.3 % (0.0-3.0); HEMATOCRIT 36.9 % (42.0-52.0); HEMOGLOBIN 11.7 g/dl (13.5-17.5); LYMPH # 1.9 10^3/uL (1.5-5.0); LYMPH % 25.3 % (24.0-44.0); MEAN CORPUSCULAR HEMOGLOBIN 29.5 pg (27.0-33.0); MEAN CORPUSCULAR HGB CONC 31.7 g/dl (32.0-36.5); MEAN CORPUSCULAR VOLUME 93.2 fl (80.0-96.0); MONO # 0.7 10^3/uL (0.0-0.8); MONO % 9.9 % (2.0-8.0); NEUTROPHILS # 4.7 10^3/uL (1.5-8.5); PLATELET COUNT, AUTOMATED 286 10^3/uL (150-450); RED BLOOD COUNT 3.96 10^6/uL (4.30-6.10); WHITE BLOOD COUNT 7.5 10^3/uL (4.0-10.0)
[2022-07-29 17:18] LABS: ALBUMIN 3.5 G/DL (3.2-5.2); BILIRUBIN,TOTAL 0.4 MG/DL (0.3-1.2); CALCIUM LEVEL 9.1 MG/DL (8.3-10.6); CREATININE FOR GFR 2.21 MG/DL (0.70-1.30); GLOMERULAR FILTRATION RATE 30.9 (>42); POTASSIUM SERUM 4.7 MMOL/L (3.5-5.1); TOTAL PROTEIN 6.8 G/DL (5.7-8.2)
== END ==
LOC: M WUC 12:48
PROVIDERS: ATTEND Nurse Practitioner Family
DX: E11.40 Type 2 diabetes mellitus with diabetic neuropathy, unspecified (principal); E78.2 Mixed hyperlipidemia; D64.9 Anemia, unspecified; I50.32 Chronic diastolic (congestive) heart failure; I48.0 Paroxysmal atrial fibrillation

== ENCOUNTER → 2022-07-29 | Outpatient (CLI) | payer MEDICARE, OTHER ==
[2022-07-29 17:23] LABS: CALCIUM LEVEL 9.1 MG/DL (8.3-10.6); CREATININE FOR GFR 2.23 MG/DL (0.70-1.30); GLOMERULAR FILTRATION RATE 30.6 (>42); MAGNESIUM LEVEL 1.8 MG/DL (1.8-2.4); POTASSIUM SERUM 4.7 MMOL/L (3.5-5.1)
== END ==
LOC: M WUC 12:50
PROVIDERS: ATTEND Physician Assistant
DX: I50.32 Chronic diastolic (congestive) heart failure (principal); I48.0 Paroxysmal atrial fibrillation

== ENCOUNTER → 2022-09-04 | Outpatient (CLI) | payer MEDICARE, OTHER | LOC: M RAD 08:50 | PROVIDERS: ATTEND Nurse Practitioner Family | DX: N18.31 Chronic kidney disease, stage 3a (principal); I12.9 Hypertensive chronic kidney disease with stage 1 through stage 4 chronic kidney disease, or unspecified chronic kidney disease; N17.9 Acute kidney failure, unspecified; N28.1 Cyst of kidney, acquired ==

== ENCOUNTER → 2022-10-20 | Outpatient (CLI) | payer MEDICARE, OTHER ==
[2022-10-20 15:49] LABS: CALCIUM LEVEL 8.7 MG/DL (8.3-10.6); CREATININE FOR GFR 1.87 MG/DL (0.70-1.30); GLOMERULAR FILTRATION RATE 37.5 (>42); MAGNESIUM LEVEL 1.8 MG/DL (1.8-2.4); POTASSIUM SERUM 4.4 MMOL/L (3.5-5.1)
== END ==
LOC: M PLALAB 10:25
PROVIDERS: ATTEND Physician Assistant
DX: I50.32 Chronic diastolic (congestive) heart failure (principal)

== ENCOUNTER 2022-12-21 13:43 | Observation (INO) | payer MEDICARE, OTHER ==
[~2022-12-21] VITALS: Ht 167.6 cm; Wt 92.3 kg
[~2022-12-21 13:43] MED LIST changes: -DILT-67; +DILT-67 PO; -TORS5TAB2; +TORS5TAB2 PO
[2022-12-21 19:48] LABS: EOS # 0.2 10^3/uL (0.0-0.5); HEMATOCRIT 39.4 % (42.0-52.0); HEMOGLOBIN 13.2 g/dl (13.5-17.5); LYMPH # 2.5 10^3/uL (1.5-5.0); LYMPH % 33.1 % (24.0-44.0); MEAN CORPUSCULAR HEMOGLOBIN 30.6 pg (27.0-33.0); MEAN CORPUSCULAR HGB CONC 33.5 g/dl (32.0-36.5); MEAN CORPUSCULAR VOLUME 91.2 fl (80.0-96.0); MONO # 0.7 10^3/uL (0.0-0.8); MONO % 9.1 % (2.0-8.0); NEUTROPHILS # 4.2 10^3/uL (1.5-8.5); NEUTROPHILS % 55.3 % (36.0-66.0); PLATELET COUNT, AUTOMATED 233 10^3/uL (150-450); RED BLOOD COUNT 4.32 10^6/uL (4.30-6.10); WHITE BLOOD COUNT 7.6 10^3/uL (4.0-10.0)
[2022-12-21 20:00] LABS: INR 1.17; PROTHROMBIN TIME 14.6 SECONDS (12.5-14.5)
[2022-12-21 20:01] LABS: RSV AMPLIFICATION NEGATIVE (NEGATIVE)
[2022-12-21 20:05] LABS: CK-MB VALUE MASS 1.2 NG/ML (<3.6)
[2022-12-21 20:07] LABS: CALCIUM LEVEL 9.2 MG/DL (8.3-10.6); CREATININE FOR GFR 1.55 MG/DL (0.70-1.30); GLOMERULAR FILTRATION RATE 46.5 (>42); MB/CK RELATIVE INDEX 2.5 (< OR =4); POTASSIUM SERUM 4.3 MMOL/L (3.5-5.1)
[2022-12-21] MEDS ORDERED: ISOVUE-370 76% 100ML VIAL As Ordered ONE (20:29)
[2022-12-21 21:51] LABS: CK-MB VALUE MASS 1.3 NG/ML (<3.6)
[2022-12-21] MEDS ORDERED: NS 500 ML IV ONE (21:55)
[2022-12-21 22:02] LABS: MB/CK RELATIVE INDEX 2.13 (< OR =4)
[2022-12-21] MEDS ORDERED: MED REC IN PROGRESS XX SCH (22:10)
[2022-12-21] MEDS ORDERED: ICAPTAB7 PO (22:59)
[2022-12-21] MEDS ORDERED: FLUT50SP17 NARES (22:59)
[2022-12-21] MEDS ORDERED: HOME MED LIST COMPLETE! XX SCH (23:00)
[2022-12-22] MEDS ORDERED: ALBUTEROL SULFATE 2.5MG/0.5ML INH NEB SOLN NEB PRN (01:25)
[2022-12-22] MEDS ORDERED: ACETAMINOPHEN TAB 650MG DOSE (2X325MG) PO PRN (01:25)
[2022-12-22 02:02] LABS: HEMATOCRIT 34.9 % (42.0-52.0); HEMOGLOBIN 11.9 g/dl (13.5-17.5)
[2022-12-22] MEDS: IPRATROPIUM 0.5MG/ALBUTEROL 2.5MG INH SOL UD 3ML (DUONEB) NEB SCH ×4 (02:15→19:26)
[2022-12-22 06:29] LABS: BLOOD UREA NITROGEN 23 MG/DL (9-23); CALCIUM LEVEL 8.8 MG/DL (8.3-10.6); CARBON DIOXIDE LEVEL 25 MMOL/L (20-31); CHLORIDE LEVEL 108 MMOL/L (98-107); CREATININE FOR GFR 1.54 MG/DL (0.70-1.30); GLOMERULAR FILTRATION RATE 46.9 (>42); GLUCOSE, FASTING 148 MG/DL (74-106); POTASSIUM SERUM 3.9 MMOL/L (3.5-5.1); SODIUM LEVEL 140 MMOL/L (136-145)
[2022-12-22] MEDS: OMEPRAZOLE 20MG CAP PO SCH (07:48)
[2022-12-22 07:49] VITALS: BP 128/74
[2022-12-22] MEDS: dilTIAZem 120MG **CD** CAPSULE PO SCH (07:49)
[2022-12-22] MEDS: TORSEMIDE 20 MG TAB PO SCH (07:49)
[2022-12-22] MEDS: APIXABAN 2.5 MG TAB (ELIQUIS) PO SCH ×2 (07:49→20:44)
[2022-12-22 13:17] LABS: IRON (FE) 46 UG/DL (65-175); PERCENT SATURATION 15.6 % (19.7-50.0); TOTAL IRON BINDING CAPACITY 294 UG/DL (250-425)
[2022-12-22 13:19] LABS: FERRITIN 22.3 NG/ML (10.5-307.3)
[2022-12-22 13:20] LABS: FOLATE > 24.0 NG/ML (>5.4); VITAMIN B12 LEVEL 554 PG/ML (211-911)
[2022-12-22 17:45] VITALS: BP 162/96; TEMP 97.1; O2SAT 99
[2022-12-22 18:30] VITALS: BP_SYST 143; BP_DIAS 82; BP_DIAS 87
[2022-12-22 18:38] LABS: PROCALCITONIN 0.06 ng/ml
[2022-12-22 19:12] LABS: APPEARANCE, URINE CLEAR (CLEAR); BACTERIA, URINE AUTO NEGATIVE (NEGATIVE); BILIRUBIN, URINE AUTO NEGATIVE (NEGATIVE); BLOOD, URINE BLOOD 3+ (NEGATIVE); COLOR, URINE YELLOW (YELLOW); GLUCOSE, URINE (UA) AUTO NEGATIVE (NEGATIVE); KETONE, URINE AUTO NEGATIVE (NEGATIVE); LEUKOCYTE ESTERASE, URINE AUTO NEGATIVE (NEGATIVE); NITRITE, URINE AUTO NEGATIVE (NEGATIVE); PROTEIN, URINE AUTO NEGATIVE (NEGATIVE); RBC, URINE AUTO 11 /HPF (0-3); SPECIFIC GRAVITY URINE AUTO 1.013 (1.002-1.035); SQUAMOUS EPITHELIAL CELL UR AU 0 /HPF (0-6); UROBILINOGEN, URINE AUTO 0.2 mg/dL (0.0-2.0); WBC, URINE AUTO 0 /HPF (0-3)
[2022-12-22 20:14] VITALS: BP 133/87; TEMP 97.1; O2SAT 97
[2022-12-22] MEDS ORDERED: ATORVASTATIN 20 MG TAB PO SCH (21:00)
[2022-12-22 22:00] VITALS: BP_SYST 134; BP_SYST 146; BP_SYST 147; BP_DIAS 70; BP_DIAS 78; BP_DIAS 80
[2022-12-23] VITALS: BP 134/70; TEMP 98.2; O2SAT 96
[2022-12-23] MEDS: IPRATROPIUM 0.5MG/ALBUTEROL 2.5MG INH SOL UD 3ML (DUONEB) NEB SCH ×2 (01:08→07:25)
[2022-12-23 04:26] VITALS: BP 115/66; TEMP 97.7; O2SAT 92
[2022-12-23 05:22] LABS: HEMATOCRIT 36.7 % (42.0-52.0); HEMOGLOBIN 12.3 g/dl (13.5-17.5); MEAN CORPUSCULAR HEMOGLOBIN 30.8 pg (27.0-33.0); MEAN CORPUSCULAR HGB CONC 33.5 g/dl (32.0-36.5); MEAN CORPUSCULAR VOLUME 91.8 fl (80.0-96.0); PLATELET COUNT, AUTOMATED 197 10^3/uL (150-450); WHITE BLOOD COUNT 7.3 10^3/uL (4.0-10.0)
[2022-12-23 05:40] LABS: CREATININE FOR GFR 1.77 MG/DL (0.70-1.30); GLOMERULAR FILTRATION RATE 39.9 (>42); MAGNESIUM LEVEL 1.9 MG/DL (1.8-2.4); PHOSPHORUS LEVEL 3.8 MG/DL (2.4-5.1); POTASSIUM SERUM 3.9 MMOL/L (3.5-5.1)
[2022-12-23 06:00] VITALS: BP_SYST 137; BP_SYST 140; BP_SYST 142; BP_DIAS 77; BP_DIAS 82
[2022-12-23 08:30] VITALS: BP 132/79; TEMP 97.6; O2SAT 95
[2022-12-23] MEDS: APIXABAN 2.5 MG TAB (ELIQUIS) PO SCH (08:53)
[2022-12-23] MEDS: dilTIAZem 120MG **CD** CAPSULE PO SCH (08:54)
[2022-12-23] MEDS: OMEPRAZOLE 20MG CAP PO SCH (08:54)
[2022-12-23] MEDS: TORSEMIDE 20 MG TAB PO SCH (08:54)
[2022-12-23 12:00] VITALS: BP 137/81; TEMP 97.7; O2SAT 96
[2022-12-23] MEDS ORDERED: FERR325T3 PO (13:12)
[2022-12-23] MEDS ORDERED: MM S100C PO (13:12)
== END 2022-12-23 14:28 | disposition home or self-care (01) ==
LOC: M ED 13:43 → M ED INP 13:44 → ENRESERV 12-22 15:44 → M PCU 12-22 17:44
PROVIDERS: ADMIT Internal Medicine; ATTEND Internal Medicine
DX: R42 Dizziness and giddiness (principal); R55 Syncope and collapse; D64.9 Anemia, unspecified; J45.909 Unspecified asthma, uncomplicated; R60.0 Localized edema; R06.09 Other forms of dyspnea; I50.9 Heart failure, unspecified; E78.00 Pure hypercholesterolemia, unspecified; Z95.0 Presence of cardiac pacemaker; Z95.2 Presence of prosthetic heart valve; Z79.01 Long term (current) use of anticoagulants; I48.91 Unspecified atrial fibrillation; N18.30 Chronic kidney disease, stage 3 unspecified; Z79.899 Other long term (current) drug therapy; Z88.0 Allergy status to penicillin; Z88.8 Allergy status to other drugs, medicaments and biological substances; F17.210 Nicotine dependence, cigarettes, uncomplicated
CPT/HCPCS: 36415; 70450; 70496; 70498; 71045; 80048; 81001; 82550; 82553; 82607; 82728; 82746; 83550; 83735; 83880; 84100; 84145; 84484; 85014; 85018; 85025; 85027; 85610; 85730; 86850; 86900; 86901; 87631; 93005; 93041; 93306; 93971; 94640; 94760; 96374; 97116; 97161; 97165; 97535; 99285; G0378; Q9967

== ENCOUNTER → 2023-01-14 | Outpatient (CLI) | payer MEDICARE, OTHER ==
[~2023-01-14] MED LIST changes: +FERR325T3 PO; +FLUT50SP17 NARES; +ICAPTAB7 PO; +MM S100C PO
== END ==
LOC: M RAD 09:24
PROVIDERS: ATTEND Registered Nurse
DX: I71.20 Thoracic aortic aneurysm, without rupture, unspecified (principal)

== ENCOUNTER 2023-04-12 01:11 | Emergency (ER) | payer MEDICARE, OTHER ==
[~2023-04-12 01:11] MED LIST changes: -FLUT50SP17 NARES; +FLUTISP NARES
[2023-04-12 02:50] LABS: BASO % 0.1 % (0.0-1.0); EOS # 0.1 10^3/uL (0.0-0.5); EOS % 0.4 % (0.0-3.0); HEMATOCRIT 40.8 % (42.0-52.0); HEMOGLOBIN 14.2 g/dl (13.5-17.5); LYMPH # 1.4 10^3/uL (1.5-5.0); LYMPH % 9.6 % (24.0-44.0); MEAN CORPUSCULAR HEMOGLOBIN 30.9 pg (27.0-33.0); MEAN CORPUSCULAR HGB CONC 34.8 g/dl (32.0-36.5); MEAN CORPUSCULAR VOLUME 88.7 fl (80.0-96.0); MONO # 1.2 10^3/uL (0.0-0.8); MONO % 8.5 % (2.0-8.0); NEUTROPHILS # 11.9 10^3/uL (1.5-8.5); NEUTROPHILS % 80.9 % (36.0-66.0); PLATELET COUNT, AUTOMATED 254 10^3/uL (150-450); WHITE BLOOD COUNT 14.6 10^3/uL (4.0-10.0)
[2023-04-12 02:59] LABS: CPK CREATINE PHOSPHOKINASE 42 U/L (46-171)
[2023-04-12 03:04] LABS: HEMOGLOBIN A1c 10.8 % (4.0-6.0)
[2023-04-12 03:05] LABS: ALBUMIN 3.6 G/DL (3.2-5.2); ALKALINE PHOSPHATASE 147 U/L (46-116); ALT/SGPT 13 U/L (7.0-40); AST/SGOT 11 U/L (<34); BILIRUBIN,TOTAL 0.6 MG/DL (0.3-1.2); BLOOD UREA NITROGEN 29 MG/DL (9-23); CALCIUM LEVEL 8.9 MG/DL (8.3-10.6); CARBON DIOXIDE LEVEL 27 MMOL/L (20-31); CHLORIDE LEVEL 100 MMOL/L (98-107); CK-MB VALUE MASS < 1.0 NG/ML (<3.6); CREATININE FOR GFR 1.64 MG/DL (0.70-1.30); GLOMERULAR FILTRATION RATE 43.5 (>42); GLUCOSE, FASTING 413 MG/DL (74-106); MAGNESIUM LEVEL 1.9 MG/DL (1.8-2.4); MB/CK RELATIVE INDEX 2.38 (< OR =4); SODIUM LEVEL 136 MMOL/L (136-145); THYROID STIMULATING HORMONE 0.715 uIU/ML (0.55-4.78); TOTAL PROTEIN 6.9 G/DL (5.7-8.2)
[2023-04-12] MEDS ORDERED: COMBAER6 INH (04:43)
[2023-04-12] MEDS: IPRATROPIUM 0.5MG/ALBUTEROL 2.5MG INH SOL UD 3ML (DUONEB) NEB PRN ×3 (05:49→05:59)
[2023-04-12] MEDS ORDERED: HumuLIN R (REGULAR) INSULIN (NovoLIN R) **100U/ML** PER UNIT IV ONE (06:35)
[2023-04-12 07:36] VITALS: BP 126/71
[2023-04-12 07:41] VITALS: TEMP 97.5; O2SAT 95
== END 2023-04-12 08:13 | disposition home or self-care (01) ==
LOC: M ED 01:11
DX: R06.00 Dyspnea, unspecified (principal); J44.9 Chronic obstructive pulmonary disease, unspecified; E11.65 Type 2 diabetes mellitus with hyperglycemia; I44.4 Left anterior fascicular block; I45.10 Unspecified right bundle-branch block; K21.9 Gastro-esophageal reflux disease without esophagitis; E78.5 Hyperlipidemia, unspecified; F17.200 Nicotine dependence, unspecified, uncomplicated; Z86.79 Personal history of other diseases of the circulatory system; Z79.01 Long term (current) use of anticoagulants; Z88.0 Allergy status to penicillin; Z88.8 Allergy status to other drugs, medicaments and biological substances; Z79.02 Long term (current) use of antithrombotics/antiplatelets; Z79.810 Long term (current) use of selective estrogen receptor modulators (SERMs); Z79.899 Other long term (current) drug therapy
CPT/HCPCS: 70450; 71046; 72125; 80053; 81001; 82550; 82553; 83036; 83735; 83880; 84443; 84484; 85025; 87040; 87486; 87581; 87633; 87798; 93005; 94640; 94760; 96374; 99285; J1815

== ENCOUNTER → 2023-04-27 | Outpatient (CLI) | payer MEDICARE, OTHER ==
[~2023-04-27] MED LIST changes: +COMBAER6 INH
[2023-04-27 14:31] LABS: BASO % 0.2 % (0.0-1.0); EOS # 0.1 10^3/uL (0.0-0.5); EOS % 1.8 % (0.0-3.0); HEMOGLOBIN 14.1 g/dl (13.5-17.5); LYMPH # 1.6 10^3/uL (1.5-5.0); LYMPH % 24.4 % (24.0-44.0); MEAN CORPUSCULAR HEMOGLOBIN 30.5 pg (27.0-33.0); MEAN CORPUSCULAR HGB CONC 34.4 g/dl (32.0-36.5); MEAN CORPUSCULAR VOLUME 88.7 fl (80.0-96.0); MONO # 0.6 10^3/uL (0.0-0.8); MONO % 8.4 % (2.0-8.0); NEUTROPHILS # 4.2 10^3/uL (1.5-8.5); NEUTROPHILS % 64.4 % (36.0-66.0); PLATELET COUNT, AUTOMATED 252 10^3/uL (150-450); RED BLOOD COUNT 4.62 10^6/uL (4.30-6.10); WHITE BLOOD COUNT 6.6 10^3/uL (4.0-10.0)
[2023-04-27 14:40] LABS: ALBUMIN 3.9 G/DL (3.2-5.2); BILIRUBIN,TOTAL 0.7 MG/DL (0.3-1.2); CALCIUM LEVEL 9.6 MG/DL (8.3-10.6); CREATININE FOR GFR 1.72 MG/DL (0.70-1.30); GLOMERULAR FILTRATION RATE 41.1 (>42); POTASSIUM SERUM 4.3 MMOL/L (3.5-5.1); TOTAL PROTEIN 7.1 G/DL (5.7-8.2)
[2023-04-27 15:11] LABS: HEMOGLOBIN A1c 11.7 % (4.0-6.0)
== END ==
LOC: M PLALAB 10:46
PROVIDERS: ATTEND Nurse Practitioner Family
DX: E11.40 Type 2 diabetes mellitus with diabetic neuropathy, unspecified (principal)

== ENCOUNTER → 2023-07-28 | Outpatient (CLI) | payer MEDICARE, OTHER ==
[2023-07-28 16:09] LABS: CALCIUM LEVEL 8.7 MG/DL (8.3-10.6); CREATININE FOR GFR 1.79 MG/DL (0.70-1.30); GLOMERULAR FILTRATION RATE 39.3 (>42); POTASSIUM SERUM 4.5 MMOL/L (3.5-5.1)
[2023-07-28 16:18] LABS: HEMOGLOBIN A1c 9.1 % (4.0-6.0)
== END ==
LOC: M PLALAB 14:00
PROVIDERS: ATTEND Nurse Practitioner Family
DX: E11.40 Type 2 diabetes mellitus with diabetic neuropathy, unspecified (principal)

== ENCOUNTER → 2023-11-01 | Outpatient (CLI) | payer MEDICARE, OTHER ==
[2023-11-01 18:20] LABS: HEMOGLOBIN A1c 8.3 % (4.0-6.0)
[2023-11-01 18:27] LABS: CALCIUM LEVEL 9.2 MG/DL (8.3-10.6); CREATININE FOR GFR 1.72 MG/DL (0.70-1.30); GLOMERULAR FILTRATION RATE 41.1 (>42); POTASSIUM SERUM 4.3 MMOL/L (3.5-5.1)
== END ==
LOC: M PLALAB 15:06
PROVIDERS: ATTEND Nurse Practitioner Family
DX: E11.40 Type 2 diabetes mellitus with diabetic neuropathy, unspecified (principal)

== ENCOUNTER → 2024-01-17 | Outpatient (CLI) | payer MEDICARE, OTHER | LOC: M RAD 13:26 | PROVIDERS: ATTEND Nurse Practitioner Family | DX: Z12.2 Encounter for screening for malignant neoplasm of respiratory organs (principal); Z87.891 Personal history of nicotine dependence; I71.21 Aneurysm of the ascending aorta, without rupture; Z95.0 Presence of cardiac pacemaker ==

== ENCOUNTER → 2024-01-31 | Outpatient (CLI) | payer MEDICARE, OTHER ==
[2024-01-31 15:34] LABS: CALCIUM LEVEL 9.3 MG/DL (8.3-10.6); CREATININE FOR GFR 1.62 MG/DL (0.70-1.30); POTASSIUM SERUM 3.9 MMOL/L (3.5-5.1)
[2024-01-31 16:12] LABS: HEMOGLOBIN A1c 8.2 % (4.0-6.0)
== END ==
LOC: M PLALAB 13:46
PROVIDERS: ATTEND Nurse Practitioner Family
DX: E11.40 Type 2 diabetes mellitus with diabetic neuropathy, unspecified (principal)

== ENCOUNTER 2024-05-31 19:30 | Inpatient (IN) | payer MEDICARE, OTHER ==
[~2024-05-31] VITALS: Ht 167.6 cm; Wt 91.2 kg
[~2024-05-31 19:30] MED LIST changes: -CYCL5TAB PO; +CYCL5TAB4 PO
[2024-05-31] MEDS ORDERED: ISOVUE-370 76% 100ML VIAL As Ordered ONE (21:13)
[2024-05-31 21:17] LABS: EOS # 0.1 10^3/uL (0.0-0.5); EOS % 1.2 % (0.0-3.0); HEMATOCRIT 49.2 % (42.0-52.0); HEMOGLOBIN 17.1 g/dl (13.5-17.5); LYMPH # 0.5 10^3/uL (1.5-5.0); LYMPH % 7.4 % (24.0-44.0); MEAN CORPUSCULAR HEMOGLOBIN 32.4 pg (27.0-33.0); MEAN CORPUSCULAR HGB CONC 34.8 g/dl (32.0-36.5); MEAN CORPUSCULAR VOLUME 93.4 fl (80.0-96.0); MONO % 14.3 % (2.0-8.0); NEUTROPHILS # 5.2 10^3/uL (1.5-8.5); NEUTROPHILS % 76.5 % (36.0-66.0); PLATELET COUNT, AUTOMATED 194 10^3/uL (150-450); RED BLOOD COUNT 5.27 10^6/uL (4.30-6.10); WHITE BLOOD COUNT 6.8 10^3/uL (4.0-10.0)
[2024-05-31 21:32] LABS: ETHYL ALCOHOL (ETHANOL) < 0.003 % (0.000-0.010)
[2024-05-31 21:34] LABS: ALBUMIN 3.8 G/DL (3.2-5.2); ALKALINE PHOSPHATASE 141 U/L (40-129); ALT/SGPT 28 U/L (7.0-40); AST/SGOT 33 U/L (<34); BILIRUBIN,DIRECT 0.2 MG/DL (<0.4); BILIRUBIN,TOTAL 0.9 MG/DL (0.3-1.2); TOTAL PROTEIN 7.2 G/DL (5.7-8.2)
[2024-05-31 21:36] LABS: THYROID STIMULATING HORMONE 0.867 uIU/ML (0.55-4.78)
[2024-05-31 21:45] LABS: KETONE, URINE AUTO RFX TRACE mg/dL (NEGATIVE); LEUKOCYTE ESTERASE UR AUTO RFX NEGATIVE (NEGATIVE); NITRITE, URINE AUTO RFX NEGATIVE (NEGATIVE); RBC, URINE AUTO RFX 3 /HPF (0-3); SQUAM EPITHELIAL CELL UR AURFX 0 /HPF (0-6); WBC, URINE AUTO RFX 1 /HPF (0-3)
[2024-05-31 22:09] LABS: AMPHETAMINES LEVEL URINE NEGATIVE (NEGATIVE); BARBITURATES URINE NEGATIVE (NEGATIVE); BENZODIAZEPINES URINE NEGATIVE (NEGATIVE); CANNABINOIDS URINE NEGATIVE (NEGATIVE); COCAINE METABOLITE URINE NEGATIVE (NEGATIVE); METHADONE URINE NEGATIVE (NEGATIVE); OPIATES URINE NEGATIVE (NEGATIVE); PHENCYCLIDINE URINE NEGATIVE (NEGATIVE)
[2024-06-01] MEDS: NS 500 ML IV ONE (00:46)
[2024-06-01] MEDS ORDERED: MOM 30ML SUSPENSION UDC PO PRN (01:05)
[2024-06-01] MEDS: NS (Normal Saline) 0.9% 1,000 ML IV SCH (01:31)
[2024-06-01 02:48] VITALS: BP 127/54; TEMP 97.7; O2SAT 95
[2024-06-01] MEDS ORDERED: GLUCOSE 4 GM CHEW PO PRN (03:15)
[2024-06-01] MEDS ORDERED: GLUCAGON INJ 1MG VIAL SC PRN (03:15)
[2024-06-01] MEDS ORDERED: DEXTROSE 50% 50ML SYRINGE IV PRN (03:15)
[2024-06-01] MEDS: APIXABAN 2.5 MG TAB (ELIQUIS) PO SCH (03:20)
[2024-06-01] MEDS ORDERED: METOCLOPRAMIDE INJ 10MG/2ML VIAL IV PRN (03:30)
[2024-06-01 03:57] LABS: VENOUS BASE EXCESS 1.3 (-2.0-2.0); VENOUS HCO3 25.6 MMOL/L (23.0-27.0); VENOUS O2 SATURATION 91.8 % (60.0-80.0); VENOUS PARTIAL PRESSURE CO2 39.7 mmHg (38.0-50.0); VENOUS PH 7.427 UNITS (7.330-7.430); VENOUS STANDARD HCO3 25.4 MMOL/L; VENOUS TOTAL CO2 26.8 MMOL/L (24.0-28.0)
[2024-06-01 04:06] LABS: HEMATOCRIT 48.2 % (42.0-52.0); HEMOGLOBIN 16.3 g/dl (13.5-17.5); MEAN CORPUSCULAR HEMOGLOBIN 31.8 pg (27.0-33.0); MEAN CORPUSCULAR HGB CONC 33.8 g/dl (32.0-36.5); MEAN CORPUSCULAR VOLUME 94.1 fl (80.0-96.0); PLATELET COUNT, AUTOMATED 189 10^3/uL (150-450); RED BLOOD COUNT 5.12 10^6/uL (4.30-6.10)
[2024-06-01 04:43] LABS: PROCALCITONIN 0.08 ng/ml
[2024-06-01 04:47] LABS: ALBUMIN 3.4 G/DL (3.2-5.2); BILIRUBIN,TOTAL 0.8 MG/DL (0.3-1.2); CALCIUM LEVEL 8.8 MG/DL (8.3-10.6); CREATININE FOR GFR 1.38 MG/DL (0.70-1.30); GLOMERULAR FILTRATION RATE 52.9 (>42); POTASSIUM SERUM 3.9 MMOL/L (3.5-5.1); TOTAL PROTEIN 6.4 G/DL (5.7-8.2)
[2024-06-01] MEDS: cefTRIAXone SOD 2 GM in DEXTROSE 5% (D5W) ADV/MINI-BAG 50 ML IV SCH (05:26)
[2024-06-01 07:51] LABS: ALBUMIN 3.2 G/DL (3.2-5.2); BILIRUBIN,TOTAL 0.6 MG/DL (0.3-1.2); CALCIUM LEVEL 8.8 MG/DL (8.3-10.6); CREATININE FOR GFR 1.35 MG/DL (0.70-1.30); GLOMERULAR FILTRATION RATE 54.3 (>42); POTASSIUM SERUM 3.9 MMOL/L (3.5-5.1); TOTAL PROTEIN 6.4 G/DL (5.7-8.2)
[2024-06-01] MEDS: BUDESONIDE 0.5 MG/2 ML INHALATION SUSPENSION NEB SCH (08:00)
[2024-06-01] MEDS: NICOTINE 14 MG/24 HR TRANSDERMAL TD SCH (08:04)
[2024-06-01] MEDS: PANTOPRAZOLE 40MG VIAL IV SCH (08:04)
[2024-06-01] MEDS: INSULIN LISPRO (NovoLOG) PER UNIT SC SCH ×2 (08:05→20:26)
[2024-06-01] MEDS ORDERED: PRES10CA2 PO (08:43)
[2024-06-01] MEDS ORDERED: JARD1TAB3 PO (08:45)
[2024-06-01] MEDS ORDERED: METF-838 PO (08:45)
[2024-06-01] MEDS ORDERED: GLIM1TAB84 PO (08:45)
[2024-06-01] MEDS ORDERED: COMBAER6 INH (08:45)
[2024-06-01] MEDS ORDERED: HOME MED LIST COMPLETE! XX SCH (08:45)
[2024-06-01] MEDS ORDERED: LEVALBUTEROL 1.25MG 0.5ML CONCENTRATE NEB INH PRN (11:45)
[2024-06-01] MEDS ORDERED: IPRATROPIUM 0.02% SOLN 0.5MG 2.5ML NEB INH PRN (11:45)
[2024-06-01] MEDS ORDERED: BISACODYL 5MG TAB PO PRN (11:45)
[2024-06-01] MEDS ORDERED: SENOKOT S TAB PO PRN (11:45)
[2024-06-01 12:05] LABS: PROLACTIN 3.81 NG/ML (2.1-17.7)
[2024-06-01] MEDS: IPRATROPIUM 0.02% SOLN 0.5MG 2.5ML NEB INH SCH (12:17)
[2024-06-01] MEDS: LEVALBUTEROL 1.25MG 0.5ML CONCENTRATE NEB INH SCH (12:17)
[2024-06-01 12:30] VITALS: BP 125/85; TEMP 98.4; O2SAT 93
[2024-06-01] MEDS: LACTULOSE 20GM/30ML SYRUP UDC PO ONE (12:31)
[2024-06-01] MEDS: ASPIRIN 81MG CHEW TABLET PO ONE (12:31)
[2024-06-01] MEDS: methylPREDNISolone 125MG 2ML VIAL IV ONE (12:32)
[2024-06-01] MEDS: SENOKOT S TAB PO ONE (12:32)
[2024-06-01] MEDS: guaiFENesin ER TABLET 600 MG TAB PO SCH (12:34)
[2024-06-01] MEDS: DOXYCYCLINE HYCLATE 100MG TABLET PO SCH (12:34)
[2024-06-01 13:50] VITALS: O2SAT 86
[2024-06-01 13:53] VITALS: O2SAT 90
[2024-06-01 13:56] VITALS: O2SAT 93
[2024-06-01] MEDS: LACTOBACILLUS ACIDOPHILUS CAP (BACID) PO SCH (17:15)
[2024-06-01] MEDS: methylPREDNISolone 40MG 1ML VIAL IV SCH (17:15)
[2024-06-01 20:07] VITALS: BP 120/87; TEMP 98.6; O2SAT 93
[2024-06-02 04:21] VITALS: BP 104/78; TEMP 97.3; O2SAT 94
[2024-06-02 07:32] VITALS: O2SAT 93
[2024-06-02] MEDS: SENOKOT S TAB PO ONE (08:18)
[2024-06-02] MEDS: PANTOPRAZOLE 40MG TAB (PROTONIX) PO SCH (08:18)
[2024-06-02] MEDS: ASPIRIN 81MG CHEW TABLET PO SCH (08:19)
[2024-06-02] MEDS: ACETAMINOPHEN 325 MG TAB PO PRN (08:20)
[2024-06-02] MEDS: LACTULOSE 20GM/30ML SYRUP UDC PO ONE (08:21)
[2024-06-02] MEDS: LACTULOSE 20GM/30ML SYRUP UDC PO SCH (09:00)
[2024-06-02 10:55] LABS: EOS # 0.1 10^3/uL (0.0-0.5); EOS % 0.7 % (0.0-3.0); HEMATOCRIT 47.6 % (42.0-52.0); HEMOGLOBIN 16.7 g/dl (13.5-17.5); LYMPH # 0.5 10^3/uL (1.5-5.0); LYMPH % 5.9 % (24.0-44.0); MEAN CORPUSCULAR HEMOGLOBIN 32.9 pg (27.0-33.0); MEAN CORPUSCULAR HGB CONC 35.1 g/dl (32.0-36.5); MEAN CORPUSCULAR VOLUME 93.7 fl (80.0-96.0); MONO # 0.4 10^3/uL (0.0-0.8); MONO % 5.4 % (2.0-8.0); NEUTROPHILS # 6.7 10^3/uL (1.5-8.5); NEUTROPHILS % 87.7 % (36.0-66.0); PLATELET COUNT, AUTOMATED 195 10^3/uL (150-450); RED BLOOD COUNT 5.08 10^6/uL (4.30-6.10); WHITE BLOOD COUNT 7.7 10^3/uL (4.0-10.0)
[2024-06-02 11:00] LABS: ERYTHROCYTE SEDIMENTATION RATE 23 mm/hr (0-20)
[2024-06-02] MEDS ORDERED: FLEET ENEMA PR PRN (11:00)
[2024-06-02 11:14] LABS: HEMOGLOBIN A1c 8.2 % (4.0-6.0)
[2024-06-02 11:31] LABS: ALBUMIN 3.4 G/DL (3.2-5.2); BILIRUBIN,DIRECT 0.1 MG/DL (<0.4); BILIRUBIN,TOTAL 0.5 MG/DL (0.3-1.2); CALCIUM LEVEL 9.2 MG/DL (8.3-10.6); CREATININE FOR GFR 1.43 MG/DL (0.70-1.30); GLOMERULAR FILTRATION RATE 50.8 (>42); POTASSIUM SERUM 3.9 MMOL/L (3.5-5.1); TOTAL PROTEIN 6.7 G/DL (5.7-8.2)
[2024-06-02 11:32] LABS: C REACTIVE PROTEIN QUANTITATIV 4.4 MG/DL (<1.0)
[2024-06-02] MEDS: BISACODYL 5MG TAB PO SCH (11:32)
[2024-06-02 11:38] LABS: PROCALCITONIN 0.11 ng/ml
[2024-06-02] MEDS: LEVEMIR (INSULIN DETEMIR) 1 UNITS/0.01ML SC SCH (11:48)
[2024-06-02] MEDS: NS (Normal Saline) 0.9% 1,000 ML IV ONE (11:54)
[2024-06-02 12:00] VITALS: BP 136/98; TEMP 97.3; O2SAT 93
[2024-06-02] MEDS: LR 1,000 ML IV SCH (12:21)
[2024-06-02] MEDS: metroNIDAZOLE 500 MG in IV 1 EA IV SCH (18:26)
[2024-06-02] MEDS: LR 1,000 ML IV ONE (18:26)
[2024-06-02 20:00] VITALS: BP 136/70; TEMP 97.9; O2SAT 93
[2024-06-02] MEDS: dilTIAZem 60 MG TAB PO SCH (20:35)
[2024-06-02] MEDS ORDERED: LR 1,000 ML IV ONE (21:15)
[2024-06-02] MEDS: LR 500 ML IV ONE (22:40)
[2024-06-03] MEDS: diphenhydrAMINE 50MG/ML VIAL IM ONE ×2 (00:59→01:45)
[2024-06-03] MEDS: HALOPERIDOL LACTATE 5MG/ML VIAL IM ONE ×2 (00:59→01:45)
[2024-06-03 09:02] LABS: BASO % 0.1 % (0.0-1.0); EOS % 0.1 % (0.0-3.0); HEMATOCRIT 48.3 % (42.0-52.0); HEMOGLOBIN 16.2 g/dl (13.5-17.5); LYMPH # 0.8 10^3/uL (1.5-5.0); LYMPH % 7.5 % (24.0-44.0); MEAN CORPUSCULAR HEMOGLOBIN 31.8 pg (27.0-33.0); MEAN CORPUSCULAR HGB CONC 33.5 g/dl (32.0-36.5); MEAN CORPUSCULAR VOLUME 94.7 fl (80.0-96.0); MONO # 0.7 10^3/uL (0.0-0.8); MONO % 6.8 % (2.0-8.0); NEUTROPHILS # 8.5 10^3/uL (1.5-8.5); PLATELET COUNT, AUTOMATED 198 10^3/uL (150-450)
[2024-06-03 09:12] LABS: ERYTHROCYTE SEDIMENTATION RATE 18 mm/hr (0-20)
[2024-06-03] MEDS: BISACODYL 10MG SUPP PR SCH (09:21)
[2024-06-03] MEDS: LR 1,000 ML IV SCH (09:22)
[2024-06-03 09:24] LABS: CK-MB VALUE MASS 11.3 NG/ML (<3.6)
[2024-06-03 09:26] LABS: ALBUMIN 3.4 G/DL (3.2-5.2); BILIRUBIN,TOTAL 0.4 MG/DL (0.3-1.2); C REACTIVE PROTEIN QUANTITATIV 2.41 MG/DL (<1.0); CALCIUM LEVEL 9.1 MG/DL (8.3-10.6); CREATININE FOR GFR 1.37 MG/DL (0.70-1.30); GLOMERULAR FILTRATION RATE 53.4 (>42); TOTAL PROTEIN 6.6 G/DL (5.7-8.2)
[2024-06-03 09:33] LABS: PROCALCITONIN 0.09 ng/ml
[2024-06-03 09:34] LABS: MB/CK RELATIVE INDEX 4.55 (< OR =4)
[2024-06-03 12:00] VITALS: BP 125/81; TEMP 97.3
[2024-06-03] MEDS: LEVEMIR (INSULIN DETEMIR) 1 UNITS/0.01ML SC ONE (12:21)
[2024-06-03] MEDS: cefTRIAXone SOD 2 GM in DEXTROSE 5% (D5W) ADV/MINI-BAG 50 ML IV SCH (18:38)
[2024-06-03 20:00] VITALS: BP 124/77; TEMP 97.7; O2SAT 93
[2024-06-04 04:00] VITALS: BP 109/79; TEMP 97.9; O2SAT 96
[2024-06-04 04:39] VITALS: BP 133/79; TEMP 97.7; O2SAT 92
[2024-06-04 07:37] LABS: BASO % 0.1 % (0.0-1.0); EOS % 0.4 % (0.0-3.0); HEMATOCRIT 46.8 % (42.0-52.0); HEMOGLOBIN 15.8 g/dl (13.5-17.5); LYMPH # 0.5 10^3/uL (1.5-5.0); LYMPH % 5.1 % (24.0-44.0); MEAN CORPUSCULAR HEMOGLOBIN 32.2 pg (27.0-33.0); MEAN CORPUSCULAR HGB CONC 33.8 g/dl (32.0-36.5); MEAN CORPUSCULAR VOLUME 95.5 fl (80.0-96.0); MONO # 0.3 10^3/uL (0.0-0.8); MONO % 3.3 % (2.0-8.0); NEUTROPHILS # 8.4 10^3/uL (1.5-8.5); NEUTROPHILS % 90.5 % (36.0-66.0); PLATELET COUNT, AUTOMATED 182 10^3/uL (150-450); WHITE BLOOD COUNT 9.3 10^3/uL (4.0-10.0)
[2024-06-04 07:41] LABS: ERYTHROCYTE SEDIMENTATION RATE 19 mm/hr (0-20)
[2024-06-04 08:07] LABS: ALBUMIN 3.2 G/DL (3.2-5.2); BILIRUBIN,TOTAL 0.4 MG/DL (0.3-1.2); C REACTIVE PROTEIN QUANTITATIV 1.3 MG/DL (<1.0); CALCIUM LEVEL 8.6 MG/DL (8.3-10.6); CREATININE FOR GFR 1.25 MG/DL (0.70-1.30); GLOMERULAR FILTRATION RATE 59.3 (>42); POTASSIUM SERUM 4.5 MMOL/L (3.5-5.1); TOTAL PROTEIN 6.4 G/DL (5.7-8.2)
[2024-06-04] MEDS: LEVEMIR (INSULIN DETEMIR) 1 UNITS/0.01ML SC SCH (08:32)
[2024-06-04] MEDS: CEFDINIR 300 MG CAP (OMNICEF) PO SCH (11:53)
[2024-06-04 12:00] VITALS: BP 138/74; TEMP 97.3; O2SAT 95
[2024-06-04] MEDS: SENOKOT S TAB PO ONE (15:35)
[2024-06-04] MEDS ORDERED: MAGNESIUM CITRATE 300ML BTL PO ONE (15:35)
[2024-06-04] MEDS ORDERED: COLA100C5 PO (15:41)
[2024-06-04] MEDS ORDERED: MIRA3350 PO (15:41)
[2024-06-04] MEDS ORDERED: VENTAER INH (15:42)
[2024-06-04] MEDS ORDERED: BACI1CAP PO (15:42)
[2024-06-04] MEDS ORDERED: PRED10TA2 PO (15:42)
[2024-06-04] MEDS ORDERED: CEFD1CAP9 PO (15:42)
[2024-06-04] MEDS ORDERED: TALK1KIT MC (15:45)
[2024-06-04] MEDS: metroNIDAZOLE (FLAGYL) 500MG TABLET PO SCH (15:48)
[2024-06-04 20:00] VITALS: BP 173/106; TEMP 97.7; O2SAT 96
[2024-06-04 21:15] VITALS: BP 122/71
[2024-06-05 05:14] VITALS: BP 120/73; TEMP 97.7; O2SAT 94
[2024-06-05 06:00] LABS: BASO % 0.3 % (0.0-1.0); EOS # 0.1 10^3/uL (0.0-0.5); EOS % 0.5 % (0.0-3.0); HEMATOCRIT 44.6 % (42.0-52.0); HEMOGLOBIN 15.2 g/dl (13.5-17.5); LYMPH # 0.7 10^3/uL (1.5-5.0); LYMPH % 6.4 % (24.0-44.0); MEAN CORPUSCULAR HGB CONC 34.1 g/dl (32.0-36.5); MEAN CORPUSCULAR VOLUME 93.9 fl (80.0-96.0); MONO # 1.2 10^3/uL (0.0-0.8); MONO % 9.9 % (2.0-8.0); NEUTROPHILS # 9.4 10^3/uL (1.5-8.5); NEUTROPHILS % 81.3 % (36.0-66.0); PLATELET COUNT, AUTOMATED 201 10^3/uL (150-450); RED BLOOD COUNT 4.75 10^6/uL (4.30-6.10); WHITE BLOOD COUNT 11.6 10^3/uL (4.0-10.0)
[2024-06-05 06:06] LABS: ERYTHROCYTE SEDIMENTATION RATE 11 mm/hr (0-20)
[2024-06-05 06:32] LABS: C REACTIVE PROTEIN QUANTITATIV 0.85 MG/DL (<1.0)
[2024-06-05 06:33] LABS: BLOOD UREA NITROGEN 31 MG/DL (9-23); CALCIUM LEVEL 8.7 MG/DL (8.3-10.6); CARBON DIOXIDE LEVEL 24 MMOL/L (20-31); CHLORIDE LEVEL 108 MMOL/L (98-107); CHOLESTEROL LEVEL 188 MG/DL (<200); CHOLESTEROL RISK RATIO 3.72 (<5); CREATININE FOR GFR 1.23 MG/DL (0.70-1.30); GLOMERULAR FILTRATION RATE > 60.0 (>42); GLUCOSE, FASTING 111 MG/DL (74-106); HDL CHOLESTEROL 50.5 MG/DL (>40); LDL CHOLESTEROL 111.9 MG/DL (<100); NON-HDL-C 137.5 MG/DL; POTASSIUM SERUM 4.1 MMOL/L (3.5-5.1); SODIUM LEVEL 141 MMOL/L (136-145); TRIGLYCERIDES LEVEL 128 MG/DL (<150)
[2024-06-05 06:53] LABS: HEPATITIS B SURFACE ANTIGEN NEGATIVE (NEGATIVE)
[2024-06-05 07:13] LABS: HEPATITIS B CORE ANTIBODY IGM NEGATIVE (NEGATIVE); HEPATITIS C VIRUS ABY INDEX < 0.02 INDEX (<0.8)
[2024-06-05] MEDS: DOCUSATE SODIUM 100MG CAPSULE PO SCH (08:30)
[2024-06-05] MEDS: predniSONE 20 MG TAB PO SCH (08:31)
== END 2024-06-05 11:35 | disposition home or self-care (01) | DRG 202 ==
LOC: M ED 19:30 → EDBD 19:30 → M ED INP 06-01 01:02 → M MS5PR 06-01 02:43
PROVIDERS: ADMIT Student in an Organized Health Care Education/Training Program; ATTEND General Practice
DX: J45.901 Unspecified asthma with (acute) exacerbation (principal); I48.21 Permanent atrial fibrillation; E87.20 Acidosis, unspecified; N18.2 Chronic kidney disease, stage 2 (mild); E11.22 Type 2 diabetes mellitus with diabetic chronic kidney disease; R10.9 Unspecified abdominal pain; F17.210 Nicotine dependence, cigarettes, uncomplicated; E78.00 Pure hypercholesterolemia, unspecified; E11.65 Type 2 diabetes mellitus with hyperglycemia; T38.0X5A Adverse effect of glucocorticoids and synthetic analogues, initial encounter; K59.00 Constipation, unspecified; K21.9 Gastro-esophageal reflux disease without esophagitis; F17.290 Nicotine dependence, other tobacco product, uncomplicated; Z71.6 Tobacco abuse counseling; Z79.01 Long term (current) use of anticoagulants; Z79.899 Other long term (current) drug therapy; Z88.0 Allergy status to penicillin; Z88.8 Allergy status to other drugs, medicaments and biological substances

== ENCOUNTER → 2024-07-03 | Outpatient (CLI) | payer MEDICARE, OTHER ==
[~2024-07-03] MED LIST changes: +BACI1CAP PO; +CEFD1CAP9 PO; +COLA100C5 PO; +GLIM1TAB84 PO; +JARD1TAB3 PO; +MIRA3350 PO; +PRED10TA2 PO; +PRES10CA2 PO; +TALK1KIT MC; +VENTAER INH
[2024-07-03 17:57] LABS: APPEARANCE, URINE CLEAR (CLEAR); BACTERIA, URINE AUTO NEGATIVE (NEGATIVE); BILIRUBIN, URINE AUTO NEGATIVE (NEGATIVE); BLOOD, URINE BLOOD NEGATIVE (NEGATIVE); COLOR, URINE STRAW (YELLOW); GLUCOSE, URINE (UA) AUTO 3+ mg/dL (NEGATIVE); KETONE, URINE AUTO NEGATIVE (NEGATIVE); LEUKOCYTE ESTERASE, URINE AUTO NEGATIVE (NEGATIVE); NITRITE, URINE AUTO NEGATIVE (NEGATIVE); PROTEIN, URINE AUTO NEGATIVE (NEGATIVE); RBC, URINE AUTO 1 /HPF (0-3); SQUAMOUS EPITHELIAL CELL UR AU 0 /HPF (0-6); UROBILINOGEN, URINE AUTO 0.2 mg/dL (0.0-2.0); WBC, URINE AUTO 0 /HPF (0-3)
[2024-07-03 18:11] LABS: BASO % 0.3 % (0.0-1.0); EOS # 0.1 10^3/uL (0.0-0.5); EOS % 1.4 % (0.0-3.0); HEMATOCRIT 48.6 % (42.0-52.0); HEMOGLOBIN 16.3 g/dl (13.5-17.5); LYMPH # 1.4 10^3/uL (1.5-5.0); LYMPH % 21.2 % (24.0-44.0); MEAN CORPUSCULAR HEMOGLOBIN 32.7 pg (27.0-33.0); MEAN CORPUSCULAR HGB CONC 33.5 g/dl (32.0-36.5); MEAN CORPUSCULAR VOLUME 97.4 fl (80.0-96.0); MONO # 0.7 10^3/uL (0.0-0.8); MONO % 11.4 % (2.0-8.0); NEUTROPHILS # 4.2 10^3/uL (1.5-8.5); NEUTROPHILS % 64.6 % (36.0-66.0); PLATELET COUNT, AUTOMATED 265 10^3/uL (150-450); RED BLOOD COUNT 4.99 10^6/uL (4.30-6.10); WHITE BLOOD COUNT 6.5 10^3/uL (4.0-10.0)
[2024-07-03 18:23] LABS: ALBUMIN 3.3 G/DL (3.2-5.2); BILIRUBIN,TOTAL 0.6 MG/DL (0.3-1.2); CREATININE FOR GFR 1.57 MG/DL (0.70-1.30); GLOMERULAR FILTRATION RATE 45.6 (>42); POTASSIUM SERUM 4.5 MMOL/L (3.5-5.1); PSA SCREENING 7.07 NG/ML (< 4.00); TOTAL PROTEIN 6.6 G/DL (5.7-8.2)
[2024-07-04 08:49] LABS: HEMOGLOBIN A1c 9.8 % (4.0-6.0)
== END ==
LOC: M PLALAB 13:40
PROVIDERS: ATTEND Nurse Practitioner Family
DX: E11.40 Type 2 diabetes mellitus with diabetic neuropathy, unspecified (principal); R30.0 Dysuria; Z12.5 Encounter for screening for malignant neoplasm of prostate
CPT/HCPCS: 36415; 80053; 81001; 83036; 85025; 87086; G0103

== ENCOUNTER 2024-07-11 10:58 | Emergency (ER) | payer MEDICARE, OTHER ==
[~2024-07-11] VITALS: Ht 175.3 cm; Wt 87.2 kg
[2024-07-11 11:09] VITALS: TEMP 96.8
[2024-07-11 13:27] LABS: BASO % 0.1 % (0.0-1.0); EOS % 0.1 % (0.0-3.0); HEMATOCRIT 49.6 % (42.0-52.0); HEMOGLOBIN 16.9 g/dl (13.5-17.5); LYMPH # 1.3 10^3/uL (1.5-5.0); LYMPH % 12.2 % (24.0-44.0); MEAN CORPUSCULAR HEMOGLOBIN 32.5 pg (27.0-33.0); MEAN CORPUSCULAR HGB CONC 34.1 g/dl (32.0-36.5); MEAN CORPUSCULAR VOLUME 95.4 fl (80.0-96.0); MONO # 1.1 10^3/uL (0.0-0.8); MONO % 10.4 % (2.0-8.0); NEUTROPHILS % 76.5 % (36.0-66.0); PLATELET COUNT, AUTOMATED 237 10^3/uL (150-450); WHITE BLOOD COUNT 10.4 10^3/uL (4.0-10.0)
[2024-07-11 13:53] LABS: ALBUMIN 3.3 G/DL (3.2-5.2); BILIRUBIN,DIRECT 0.2 MG/DL (<0.4); BILIRUBIN,TOTAL 0.9 MG/DL (0.3-1.2); CALCIUM LEVEL 9.1 MG/DL (8.3-10.6); CREATININE FOR GFR 1.52 MG/DL (0.70-1.30); GLOMERULAR FILTRATION RATE 47.3 (>42); POTASSIUM SERUM 4.4 MMOL/L (3.5-5.1); TOTAL PROTEIN 6.8 G/DL (5.7-8.2)
[2024-07-11] MEDS: ACETAMINOPHEN *IV* 1,000 MG in IV 1 EA IV ONE (15:00)
[2024-07-11] MEDS: MORPHINE 2 MG/ML 1ML VIAL IV ONE (15:15)
[2024-07-11] MEDS ORDERED: CLEO300C2 PO (15:39)
[2024-07-11 16:00] VITALS: BP 109/79; O2SAT 92
[2024-07-12] MEDS ORDERED: ALBU8.5H INH (18:52)
[2024-07-12] MEDS ORDERED: MIRA3350 PO (18:52)
[2024-07-12] MEDS ORDERED: CLEO300C2 PO (18:52)
== END 2024-07-11 17:09 | disposition home or self-care (01) ==
LOC: M ED 10:58
DX: H66.92 Otitis media, unspecified, left ear (principal); I48.91 Unspecified atrial fibrillation; I10 Essential (primary) hypertension; E11.9 Type 2 diabetes mellitus without complications; E78.5 Hyperlipidemia, unspecified; J44.9 Chronic obstructive pulmonary disease, unspecified; Z95.0 Presence of cardiac pacemaker; Z87.891 Personal history of nicotine dependence; Z79.84 Long term (current) use of oral hypoglycemic drugs; Z79.899 Other long term (current) drug therapy; Z88.0 Allergy status to penicillin; Z88.5 Allergy status to narcotic agent; Z88.8 Allergy status to other drugs, medicaments and biological substances
CPT/HCPCS: 70450; 70480; 71045; 80048; 80076; 85025; 93005; 93041; 94760; 96374; 96375; 99285; J0131

== ENCOUNTER 2024-07-12 15:43 | Observation (INO) | payer MEDICARE, OTHER ==
[~2024-07-12] VITALS: Ht 165.1 cm; Wt 86.7 kg
[~2024-07-12 15:43] MED LIST changes: +CLEO300C2 PO
[2024-07-12 16:26] LABS: ABG BASE EXCESS 1.9 (-2.0-2.0); ABG HCO3 25.4 MMOL/L (22.0-26.0); ABG O2 SATURATION 95.8 % (95.0-99.0); ABG PARTIAL PRESSURE CO2 36.7 mmHg (35.0-45.0); ABG PARTIAL PRESSURE O2 81.5 mmHg (75.0-100.0); ABG STANDARD HCO3 26.1 MMOL/L. (22.0-26.0); ABG TOTAL CO2 26.5 MMOL/L (23.0-31.0); ABG pH (ARTERIAL) 7.458 UNITS (7.350-7.450)
[2024-07-12 16:29] LABS: BASO % 0.1 % (0.0-1.0); EOS % 0.3 % (0.0-3.0); HEMATOCRIT 50.3 % (42.0-52.0); HEMOGLOBIN 16.9 g/dl (13.5-17.5); LYMPH # 1.8 10^3/uL (1.5-5.0); LYMPH % 20.7 % (24.0-44.0); MEAN CORPUSCULAR HEMOGLOBIN 31.6 pg (27.0-33.0); MEAN CORPUSCULAR HGB CONC 33.6 g/dl (32.0-36.5); MEAN CORPUSCULAR VOLUME 94.2 fl (80.0-96.0); MONO # 1.1 10^3/uL (0.0-0.8); NEUTROPHILS # 5.7 10^3/uL (1.5-8.5); NEUTROPHILS % 65.2 % (36.0-66.0); PLATELET COUNT, AUTOMATED 251 10^3/uL (150-450); RED BLOOD COUNT 5.34 10^6/uL (4.30-6.10); WHITE BLOOD COUNT 8.8 10^3/uL (4.0-10.0)
[2024-07-12 16:53] LABS: KETONE, URINE AUTO RFX NEGATIVE (NEGATIVE); LEUKOCYTE ESTERASE UR AUTO RFX NEGATIVE (NEGATIVE); NITRITE, URINE AUTO RFX NEGATIVE (NEGATIVE); RBC, URINE AUTO RFX 1 /HPF (0-3); SQUAM EPITHELIAL CELL UR AURFX 0 /HPF (0-6); WBC, URINE AUTO RFX 0 /HPF (0-3)
[2024-07-12] MEDS: IPRATROPIUM 0.5MG/ALBUTEROL 2.5MG INH SOL UD 3ML (DUONEB) NEB ONE (17:00)
[2024-07-12 17:02] LABS: ALBUMIN 3.4 G/DL (3.2-5.2); BILIRUBIN,DIRECT 0.2 MG/DL (<0.4); BILIRUBIN,TOTAL 0.9 MG/DL (0.3-1.2); CALCIUM LEVEL 9.1 MG/DL (8.3-10.6); CREATININE FOR GFR 1.66 MG/DL (0.70-1.30); GLOMERULAR FILTRATION RATE 42.8 (>42); POTASSIUM SERUM 4.4 MMOL/L (3.5-5.1)
[2024-07-12 17:04] LABS: MB/CK RELATIVE INDEX 2.77 (< OR =4); THYROID STIMULATING HORMONE 0.672 uIU/ML (0.55-4.78)
[2024-07-12] MEDS ORDERED: ISOVUE-370 76% 100ML VIAL As Ordered ONE (17:18)
[2024-07-12 18:28] LABS: CK-MB VALUE MASS < 1.0 NG/ML (<3.6); CPK CREATINE PHOSPHOKINASE 48 U/L (46-171); MB/CK RELATIVE INDEX 2.08 (< OR =4)
[2024-07-12] MEDS ORDERED: CLEO300C2 PO (18:52)
[2024-07-12] MEDS ORDERED: MIRA3350 PO (18:52)
[2024-07-12] MEDS ORDERED: ALBU8.5H INH (18:52)
[2024-07-12] MEDS ORDERED: HOME MED LIST COMPLETE! XX SCH (18:55)
[2024-07-12] MEDS ORDERED: ALBUTEROL 90 MCG/ACT 8GM HFA INHALER INH PRN (20:45)
[2024-07-12] MEDS ORDERED: GLUCAGON INJ 1MG VIAL SC PRN (20:45)
[2024-07-12] MEDS ORDERED: DEXTROSE 50% 50ML SYRINGE IV PRN (20:45)
[2024-07-12] MEDS ORDERED: ACETAMINOPHEN 500 MG TAB PO PRN (20:45)
[2024-07-12] MEDS ORDERED: FLUTICASONE PROP 0.05% NASAL SPRAY 16 GM (FLONASE) NARES PRN (20:45)
[2024-07-12] MEDS ORDERED: MOM 30ML SUSPENSION UDC PO PRN (20:45)
[2024-07-12] MEDS ORDERED: GLUCOSE 4 GM CHEW PO PRN (20:45)
[2024-07-12] MEDS: INSULIN LISPRO (NovoLOG) PER UNIT SC SCH (21:10)
[2024-07-12] MEDS: APIXABAN 2.5 MG TAB (ELIQUIS) PO SCH (21:35)
[2024-07-12] MEDS: CLINDAMYCIN 150MG CAPSULE PO SCH (21:35)
[2024-07-12] MEDS: FERROUS SULFATE 325MG TAB PO SCH (21:36)
[2024-07-12] MEDS: ATORVASTATIN 20 MG TAB PO SCH (21:36)
[2024-07-12] MEDS: methylPREDNISolone 125MG 2ML VIAL IV SCH (21:36)
[2024-07-12] MEDS: HALOPERIDOL LACTATE 5MG/ML VIAL IM ONE (21:58)
[2024-07-13 00:33] VITALS: BP 115/81; TEMP 97.3; O2SAT 93
[2024-07-13 00:51] VITALS: O2SAT 92; O2SAT 93
[2024-07-13] MEDS: IPRATROPIUM 0.5MG/ALBUTEROL 2.5MG INH SOL UD 3ML (DUONEB) NEB SCH (01:57)
[2024-07-13 03:52] VITALS: BP 117/78; TEMP 97.9; O2SAT 93
[2024-07-13 06:19] LABS: HEMOGLOBIN 16.2 g/dl (13.5-17.5); MEAN CORPUSCULAR HEMOGLOBIN 32.5 pg (27.0-33.0); MEAN CORPUSCULAR HGB CONC 33.8 g/dl (32.0-36.5); MEAN CORPUSCULAR VOLUME 96.2 fl (80.0-96.0); PLATELET COUNT, AUTOMATED 224 10^3/uL (150-450); RED BLOOD COUNT 4.99 10^6/uL (4.30-6.10); WHITE BLOOD COUNT 5.3 10^3/uL (4.0-10.0)
[2024-07-13 06:53] LABS: ALBUMIN 3.1 G/DL (3.2-5.2); BILIRUBIN,TOTAL 0.7 MG/DL (0.3-1.2); CALCIUM LEVEL 9.3 MG/DL (8.3-10.6); CREATININE FOR GFR 1.62 MG/DL (0.70-1.30); POTASSIUM SERUM 4.6 MMOL/L (3.5-5.1); TOTAL PROTEIN 6.6 G/DL (5.7-8.2)
[2024-07-13] MEDS: MIRALAX *UNIT DOSE* 17GM PACKET PO SCH (09:16)
[2024-07-13] MEDS: TORSEMIDE 10 MG TABLET PO SCH (09:17)
[2024-07-13] MEDS: dilTIAZem 120MG **CD** CAPSULE PO SCH (09:22)
[2024-07-13] MEDS: OMEPRAZOLE 20MG CAP PO SCH (09:23)
[2024-07-13] MEDS: INSULIN LISPRO (NovoLOG) PER UNIT SC SCH (09:24)
[2024-07-13] MEDS: NICOTINE 14 MG/24 HR TRANSDERMAL TD SCH (09:25)
[2024-07-13 11:49] VITALS: BP 122/90; TEMP 97.7; O2SAT 92
[2024-07-13] MEDS: NYSTATIN 100,000 UNITS/GM TOPICAL PWD 15GM TOP SCH (14:15)
[2024-07-13 19:59] VITALS: BP 102/72; TEMP 97.7; O2SAT 93
[2024-07-14 04:00] VITALS: BP 92/54; TEMP 97.9; O2SAT 81
[2024-07-14 08:30] VITALS: BP 93/54
[2024-07-14] MEDS: predniSONE 20 MG TAB PO SCH (08:30)
[2024-07-14] MEDS ORDERED: PRED20TA PO (10:02)
[2024-07-14] MEDS ORDERED: DOXY100C3 PO (10:02)
[2024-07-14] MEDS ORDERED: ALBU8.5H INH (10:02)
[2024-07-14 11:34] VITALS: BP 98/64; TEMP 97.5; O2SAT 91
[2024-07-14 12:00] VITALS: BP 107/62; O2SAT 93
[2024-07-14] MEDS: SIMETHICONE 80MG CHEW TAB PO SCH (15:43)
[2024-07-14] MEDS: LACTULOSE 20GM/30ML SYRUP UDC PO ONE (15:47)
[2024-07-14] MEDS: MAGNESIUM CITRATE 300ML BTL PO ONE (15:47)
[2024-07-14] MEDS: BISACODYL 10MG SUPP PR ONE (15:47)
[2024-07-14 18:00] VITALS: BP 111/72
[2024-07-14] MEDS: MIDODRINE 5 MG TAB PO SCH (18:06)
[2024-07-14] MEDS: MOM 30ML SUSPENSION UDC PO ONE (18:10)
[2024-07-14 20:00] VITALS: BP 99/61; TEMP 98.1; O2SAT 94
[2024-07-14] MEDS: SENOKOT S TAB PO SCH (21:24)
[2024-07-15 04:15] VITALS: BP 123/74; TEMP 98.1; O2SAT 93
[2024-07-15 08:25] VITALS: BP 122/78
[2024-07-15 10:57] LABS: BASO % 0.2 % (0.0-1.0); EOS % 0.3 % (0.0-3.0); HEMOGLOBIN 14.7 g/dl (13.5-17.5); LYMPH # 0.9 10^3/uL (1.5-5.0); LYMPH % 7.6 % (24.0-44.0); MEAN CORPUSCULAR HEMOGLOBIN 31.7 pg (27.0-33.0); MEAN CORPUSCULAR HGB CONC 33.4 g/dl (32.0-36.5); MONO # 0.8 10^3/uL (0.0-0.8); MONO % 6.9 % (2.0-8.0); NEUTROPHILS # 9.4 10^3/uL (1.5-8.5); NEUTROPHILS % 83.5 % (36.0-66.0); PLATELET COUNT, AUTOMATED 240 10^3/uL (150-450); RED BLOOD COUNT 4.63 10^6/uL (4.30-6.10); WHITE BLOOD COUNT 11.3 10^3/uL (4.0-10.0)
[2024-07-15 11:13] LABS: ALBUMIN 3.2 G/DL (3.2-5.2); BILIRUBIN,TOTAL 0.6 MG/DL (0.3-1.2); CREATININE FOR GFR 1.51 MG/DL (0.70-1.30); GLOMERULAR FILTRATION RATE 47.7 (>42); MAGNESIUM LEVEL 2.4 MG/DL (1.8-2.4); POTASSIUM SERUM 4.8 MMOL/L (3.5-5.1); TOTAL PROTEIN 6.4 G/DL (5.7-8.2)
[2024-07-15] MEDS ORDERED: SENO8.6T10 PO (11:16)
[2024-07-15] MEDS ORDERED: SIME1CAP3 PO (11:16)
[2024-07-15] MEDS ORDERED: MIRA3350 PO (11:16)
[2024-07-15] MEDS ORDERED: MIDO5TA PO (11:18)
[2024-07-15] MEDS: MIRALAX *UNIT DOSE* 17GM PACKET PO ONE (11:23)
[2024-07-15] MEDS: BISACODYL 10MG SUPP PR SCH (11:23)
[2024-07-15] MEDS: METOCLOPRAMIDE INJ 10MG/2ML VIAL IV ONE (11:23)
[2024-07-15] MEDS: SENOKOT S TAB PO ONE (11:23)
[2024-07-15 12:00] VITALS: BP 111/68; TEMP 97.7; O2SAT 92
[2024-07-15 13:46] VITALS: BP 113/74
== END 2024-07-15 14:03 | disposition home health service (06) ==
LOC: M ED 15:43 → EDBD 15:43 → M ED INP 15:44 → M MSPAV 07-13 00:34
PROVIDERS: ADMIT Student in an Organized Health Care Education/Training Program; ATTEND General Practice
DX: G93.41 Metabolic encephalopathy (principal); J44.1 Chronic obstructive pulmonary disease with (acute) exacerbation; H60.90 Unspecified otitis externa, unspecified ear; J20.9 Acute bronchitis, unspecified; J98.11 Atelectasis; N18.30 Chronic kidney disease, stage 3 unspecified; M62.81 Muscle weakness (generalized); K59.00 Constipation, unspecified; R06.6 Hiccough; I48.91 Unspecified atrial fibrillation; F17.218 Nicotine dependence, cigarettes, with other nicotine-induced disorders; E78.00 Pure hypercholesterolemia, unspecified; K21.9 Gastro-esophageal reflux disease without esophagitis; E11.9 Type 2 diabetes mellitus without complications; Z79.01 Long term (current) use of anticoagulants; Z79.84 Long term (current) use of oral hypoglycemic drugs; Z79.2 Long term (current) use of antibiotics; Z79.52 Long term (current) use of systemic steroids; Z79.899 Other long term (current) drug therapy
CPT/HCPCS: 36415; 36600; 51701; 70450; 71045; 71275; 74018; 80047; 80048; 80053; 80076; 81001; 82140; 82550; 82553; 82803; 83605; 83735; 84145; 84443; 84484; 85025; 85027; 87486; 87581; 87633; 87798; 93005; 93041; 94640; 94760; 96372; 96374; 96375; 96376; 97116; 97161; 97165; 97530; 99285; G0378; J1630; J1815; J2765; J2919; J7512; Q9967

== ENCOUNTER → 2024-08-03 | Outpatient (REF) | payer MEDICARE, OTHER ==
[~2024-08-03] MED LIST changes: +ALBU8.5H INH; +DOXY100C3 PO; +MIDO5TA PO; +PRED20TA PO; +SENO8.6T10 PO; +SIME1CAP3 PO
== END ==
LOC: M LAB REF 11:44
PROVIDERS: ATTEND Physician Assistant
DX: I48.0 Paroxysmal atrial fibrillation (principal); Z79.899 Other long term (current) drug therapy; E11.40 Type 2 diabetes mellitus with diabetic neuropathy, unspecified

== ENCOUNTER → 2024-08-03 | Outpatient (REF) | payer MEDICARE, OTHER ==
[2024-08-03 12:44] LABS: HEMOGLOBIN A1c 10.8 % (4.0-6.0)
[2024-08-03 12:56] LABS: CALCIUM LEVEL 9.4 MG/DL (8.3-10.6); CREATININE FOR GFR 1.56 MG/DL (0.70-1.30); GLOMERULAR FILTRATION RATE 45.9 (>42); POTASSIUM SERUM 4.5 MMOL/L (3.5-5.1)
== END ==
LOC: M LAB REF 11:45
PROVIDERS: ATTEND Nurse Practitioner Family
DX: E11.40 Type 2 diabetes mellitus with diabetic neuropathy, unspecified (principal)

== ENCOUNTER → 2024-08-09 | Outpatient (CLI) | payer MEDICARE, OTHER ==
[2024-08-10 14:32] LABS: PSA FREE 0.9 ng/mL; PSA TOTAL 7.8 ng/mL (< OR = 4.0)
== END ==
LOC: M WUC 12:16
PROVIDERS: ATTEND Nurse Practitioner Family
DX: R97.20 Elevated prostate specific antigen [PSA] (principal)

== ENCOUNTER → 2024-09-14 | Outpatient (REF) | payer MEDICARE, OTHER ==
[2024-09-14 12:03] LABS: CALCIUM LEVEL 9.2 MG/DL (8.3-10.6); CREATININE FOR GFR 1.5 MG/DL (0.70-1.30); GLOMERULAR FILTRATION RATE 47.1 (>42); POTASSIUM SERUM 4.5 MMOL/L (3.5-5.1)
== END ==
LOC: M LAB REF 11:15
PROVIDERS: ATTEND Physician Assistant
DX: I50.32 Chronic diastolic (congestive) heart failure (principal); E11.40 Type 2 diabetes mellitus with diabetic neuropathy, unspecified; R31.9 Hematuria, unspecified

== ENCOUNTER → 2024-09-14 | Outpatient (REF) | payer MEDICARE, OTHER ==
[2024-09-14 11:43] LABS: APPEARANCE, URINE CLEAR (CLEAR); BACTERIA, URINE AUTO NEGATIVE (NEGATIVE); BILIRUBIN, URINE AUTO NEGATIVE (NEGATIVE); BLOOD, URINE BLOOD 3+ (NEGATIVE); COLOR, URINE YELLOW (YELLOW); GLUCOSE, URINE (UA) AUTO 3+ mg/dL (NEGATIVE); KETONE, URINE AUTO NEGATIVE (NEGATIVE); LEUKOCYTE ESTERASE, URINE AUTO NEGATIVE (NEGATIVE); MUCUS, URINE SMALL (NEGATIVE); NITRITE, URINE AUTO NEGATIVE (NEGATIVE); PROTEIN, URINE AUTO 1+ mg/dL (NEGATIVE); RBC, URINE AUTO 61 /HPF (0-3); SPECIFIC GRAVITY URINE AUTO 1.018 (1.002-1.035); SQUAMOUS EPITHELIAL CELL UR AU 0 /HPF (0-6); UROBILINOGEN, URINE AUTO 0.2 mg/dL (0.0-2.0); WBC, URINE AUTO 0 /HPF (0-3)
[2024-09-14 11:58] LABS: HEMOGLOBIN A1c 9.6 % (4.0-6.0)
== END ==
LOC: M LAB REF 10:33
PROVIDERS: ATTEND Nurse Practitioner Family
DX: E11.40 Type 2 diabetes mellitus with diabetic neuropathy, unspecified (principal); R31.9 Hematuria, unspecified

== ENCOUNTER 2024-09-22 14:12 | Emergency (ER) | payer MEDICARE, OTHER ==
[~2024-09-22] VITALS: Ht 172.7 cm; Wt 91.3 kg
[2024-09-22 14:47] LABS: BASO % 0.1 % (0.0-1.0); EOS # 0.1 10^3/uL (0.0-0.5); EOS % 1.4 % (0.0-3.0); HEMATOCRIT 46.7 % (42.0-52.0); HEMOGLOBIN 15.5 g/dl (13.5-17.5); LYMPH # 1.8 10^3/uL (1.5-5.0); LYMPH % 25.7 % (24.0-44.0); MEAN CORPUSCULAR HEMOGLOBIN 32.7 pg (27.0-33.0); MEAN CORPUSCULAR HGB CONC 33.2 g/dl (32.0-36.5); MEAN CORPUSCULAR VOLUME 98.5 fl (80.0-96.0); MONO # 0.8 10^3/uL (0.0-0.8); NEUTROPHILS # 4.4 10^3/uL (1.5-8.5); NEUTROPHILS % 61.2 % (36.0-66.0); PLATELET COUNT, AUTOMATED 226 10^3/uL (150-450); RED BLOOD COUNT 4.74 10^6/uL (4.30-6.10); WHITE BLOOD COUNT 7.2 10^3/uL (4.0-10.0)
[2024-09-22 14:59] LABS: INR 0.99; PARTIAL THROMBOPLASTIN TIME 26.9 SECONDS (24.8-34.2); PROTHROMBIN TIME 13.4 SECONDS (12.5-14.5)
[2024-09-22 15:08] LABS: CK-MB VALUE MASS < 1.0 NG/ML (<3.6)
[2024-09-22 15:10] LABS: BLOOD UREA NITROGEN 39 MG/DL (9-23); CALCIUM LEVEL 8.7 MG/DL (8.3-10.6); CARBON DIOXIDE LEVEL 28 MMOL/L (20-31); CHLORIDE LEVEL 102 MMOL/L (98-107); CREATININE FOR GFR 1.61 MG/DL (0.70-1.30); GLOMERULAR FILTRATION RATE 43.2 (>42); GLUCOSE, FASTING 320 MG/DL (74-106); POTASSIUM SERUM 4.5 MMOL/L (3.5-5.1); SODIUM LEVEL 140 MMOL/L (136-145)
[2024-09-22 15:13] LABS: CPK CREATINE PHOSPHOKINASE 19 U/L (46-171); MB/CK RELATIVE INDEX 5.26 (< OR =4)
[2024-09-22] MEDS ORDERED: TORSEMIDE 10 MG TABLET PO ONE (15:30)
[2024-09-22] MEDS: TORSEMIDE 10 MG TABLET PO ONE (15:52)
[2024-09-22 16:02] LABS: CK-MB VALUE MASS < 1.0 NG/ML (<3.6)
[2024-09-22 16:05] LABS: CPK CREATINE PHOSPHOKINASE 22 U/L (46-171); MB/CK RELATIVE INDEX 4.54 (< OR =4)
[2024-09-22 17:16] VITALS: BP 139/76; TEMP 98.6; O2SAT 94
== END 2024-09-22 17:18 | disposition home or self-care (01) ==
LOC: EDBD 14:12 → M ED 14:12
DX: R07.89 Other chest pain (principal); Z95.0 Presence of cardiac pacemaker; I48.91 Unspecified atrial fibrillation; I50.9 Heart failure, unspecified; E11.9 Type 2 diabetes mellitus without complications; G47.33 Obstructive sleep apnea (adult) (pediatric); Z79.84 Long term (current) use of oral hypoglycemic drugs; Z79.01 Long term (current) use of anticoagulants; Z79.899 Other long term (current) drug therapy; Z88.0 Allergy status to penicillin; Z88.5 Allergy status to narcotic agent; Z88.8 Allergy status to other drugs, medicaments and biological substances

== ENCOUNTER → 2024-11-14 | Outpatient (CLI) | payer MEDICARE, OTHER | LOC: M PLAIMG 15:16 | PROVIDERS: ATTEND Physician Assistant | DX: I35.2 Nonrheumatic aortic (valve) stenosis with insufficiency (principal); Z95.4 Presence of other heart-valve replacement; I50.32 Chronic diastolic (congestive) heart failure ==

== ENCOUNTER → 2024-11-24 | Outpatient (REF) | payer MEDICARE, OTHER ==
[2024-11-24 13:22] LABS: ESTIMATED AVERAGE GLUCOSE 183.0 MG/DL (60-110)
[2024-11-24 13:44] LABS: CALCIUM LEVEL 9.2 MG/DL (8.3-10.6); CARBON DIOXIDE LEVEL 29.0 MMOL/L (20-31); CHLORIDE LEVEL 99.0 MMOL/L (98-107); CREATININE FOR GFR 1.63 MG/DL (0.70-1.30); GLOMERULAR FILTRATION RATE 42.6 (>42); POTASSIUM SERUM 4.1 MMOL/L (3.5-5.1); SODIUM LEVEL 142.0 MMOL/L (136-145)
== END ==
LOC: M LAB REF 12:39
PROVIDERS: ATTEND Nurse Practitioner Family
DX: E11.40 Type 2 diabetes mellitus with diabetic neuropathy, unspecified (principal)

== ENCOUNTER → 2024-11-24 | Outpatient (REF) | payer MEDICARE, OTHER ==
[2024-11-24 13:49] LABS: BASO # 0.0 10^3/uL (0.0-0.2); BASO % 0.1 % (0.0-1.0); EOS # 0.1 10^3/uL (0.0-0.5); EOS % 1.2 % (0.0-3.0); LYMPH # 2.0 10^3/uL (1.5-5.0); LYMPH % 26.3 % (24.0-44.0); MONO # 0.8 10^3/uL (0.0-0.8); MONO % 10.1 % (2.0-8.0); NEUTROPHILS # 4.8 10^3/uL (1.5-8.5); NEUTROPHILS % 61.4 % (36.0-66.0); PLATELET COUNT, AUTOMATED 215 10^3/uL (150-450)
[2024-11-24 14:08] LABS: ALT/SGPT 20 U/L (7.0-40); AST/SGOT 19 U/L (<34); CALCIUM LEVEL 9.2 MG/DL (8.3-10.6); CARBON DIOXIDE LEVEL 29 MMOL/L (20-31); CHLORIDE LEVEL 100 MMOL/L (98-107); CREATININE FOR GFR 1.61 MG/DL (0.70-1.30); GLOMERULAR FILTRATION RATE 43.2 (>42); POTASSIUM SERUM 4.1 MMOL/L (3.5-5.1); SODIUM LEVEL 142 MMOL/L (136-145)
[2024-11-24 14:09] LABS: FREE T4 1.06 NG/DL (0.89-1.76)
[2024-11-24 14:10] LABS: VITAMIN B12 LEVEL 589 PG/ML (211-911)
== END ==
LOC: M LAB REF 12:36
PROVIDERS: ATTEND Psychiatry & Neurology Neurology
DX: E53.8 Deficiency of other specified B group vitamins (principal); E07.9 Disorder of thyroid, unspecified; R41.3 Other amnesia; Z11.3 Encounter for screening for infections with a predominantly sexual mode of transmission; E11.40 Type 2 diabetes mellitus with diabetic neuropathy, unspecified

== ENCOUNTER → 2024-11-28 | Outpatient (REF) | payer MEDICARE, OTHER | LOC: M SHH 10:52 | PROVIDERS: ATTEND Psychiatry & Neurology Neurology | DX: Z11.3 Encounter for screening for infections with a predominantly sexual mode of transmission (principal); E07.9 Disorder of thyroid, unspecified; R41.3 Other amnesia; E53.8 Deficiency of other specified B group vitamins ==

== ENCOUNTER 2024-12-08 11:49 | Emergency (ER) | payer MEDICARE, OTHER ==
[~2024-12-08] VITALS: Ht 177.8 cm; Wt 89.4 kg
[2024-12-08 12:26] LABS: BASO # 0.0 10^3/uL (0.0-0.2); BASO % 0.1 % (0.0-1.0); EOS # 0.1 10^3/uL (0.0-0.5); EOS % 1.2 % (0.0-3.0); LYMPH # 2.0 10^3/uL (1.5-5.0); LYMPH % 26.0 % (24.0-44.0); MONO # 0.8 10^3/uL (0.0-0.8); MONO % 10.8 % (2.0-8.0); NEUTROPHILS # 4.8 10^3/uL (1.5-8.5); NEUTROPHILS % 61.3 % (36.0-66.0); PLATELET COUNT, AUTOMATED 197 10^3/uL (150-450)
[2024-12-08 12:48] LABS: CK-MB VALUE MASS 1.6 NG/ML (<3.6)
[2024-12-08 12:49] LABS: CALCIUM LEVEL 9.1 MG/DL (8.3-10.6); CARBON DIOXIDE LEVEL 25.0 MMOL/L (20-31); CHLORIDE LEVEL 101.0 MMOL/L (98-107); CPK CREATINE PHOSPHOKINASE 35.0 U/L (46-171); CREATININE FOR GFR 1.61 MG/DL (0.70-1.30); GLOMERULAR FILTRATION RATE 43.2 (>42); MB/CK RELATIVE INDEX 4.57 (< OR =4); POTASSIUM SERUM 4.1 MMOL/L (3.5-5.1); SODIUM LEVEL 143.0 MMOL/L (136-145)
[2024-12-08] MEDS ORDERED: SITA50TAB PO (13:34)
[2024-12-08] MEDS ORDERED: MIRA3350 PO (13:34)
[2024-12-08] MEDS ORDERED: SENO8.6T10 PO (13:34)
[2024-12-08] MEDS ORDERED: DIGO0.123 PO (13:34)
[2024-12-08] MEDS ORDERED: TAMS1CAP17 PO (13:34)
[2024-12-08] MEDS ORDERED: GLIM4TAB5 PO (13:34)
[2024-12-08] MEDS ORDERED: HOME MED LIST COMPLETE! XX SCH (13:35)
[2024-12-08 13:40] LABS: CK-MB VALUE MASS 1.0 NG/ML (<3.6)
[2024-12-08 13:41] LABS: CPK CREATINE PHOSPHOKINASE 22.0 U/L (46-171); MB/CK RELATIVE INDEX 4.54 (< OR =4)
[2024-12-08] MEDS: NS (Normal Saline) 0.9% 1,000 ML IV ONE (14:03)
[2024-12-08 14:17] LABS: VENOUS BASE EXCESS 1.3 (-2.0-2.0); VENOUS HCO3 25.2 MMOL/L (23.0-27.0); VENOUS O2 SATURATION 96.8 % (60.0-80.0); VENOUS PARTIAL PRESSURE CO2 38.0 mmHg (38.0-50.0); VENOUS PARTIAL PRESSURE O2 89.2 mmHg (30.0-50.0); VENOUS PH 7.440 UNITS (7.330-7.430); VENOUS STANDARD HCO3 25.6 MMOL/L; VENOUS TOTAL CO2 26.4 MMOL/L (24.0-28.0)
[2024-12-08 15:30] VITALS: BP 110/67
[2024-12-08 16:03] VITALS: TEMP 96.9; O2SAT 96
== END 2024-12-08 16:05 | disposition home or self-care (01) ==
LOC: M ED 11:49
DX: R07.89 Other chest pain (principal); I48.91 Unspecified atrial fibrillation; I50.9 Heart failure, unspecified; E11.9 Type 2 diabetes mellitus without complications; F03.90 Unspecified dementia, unspecified severity, without behavioral disturbance, psychotic disturbance, mood disturbance, and anxiety; G47.33 Obstructive sleep apnea (adult) (pediatric); Z95.0 Presence of cardiac pacemaker; Z79.01 Long term (current) use of anticoagulants; Z79.84 Long term (current) use of oral hypoglycemic drugs; Z79.899 Other long term (current) drug therapy; Z88.0 Allergy status to penicillin; Z88.5 Allergy status to narcotic agent; Z88.8 Allergy status to other drugs, medicaments and biological substances

== ENCOUNTER → 2025-01-03 | Outpatient (CLI) | payer MEDICARE, OTHER ==
[~2025-01-03] MED LIST changes: +DIGO0.123 PO; +GLIM4TAB5 PO; +SITA50TAB PO; +TAMS1CAP17 PO
[2025-01-03 13:32] LABS: CALCIUM LEVEL 9.2 MG/DL (8.3-10.6); CARBON DIOXIDE LEVEL 28.0 MMOL/L (20-31); CHLORIDE LEVEL 102.0 MMOL/L (98-107); CREATININE FOR GFR 1.57 MG/DL (0.70-1.30); GLOMERULAR FILTRATION RATE 44.6 (>42); POTASSIUM SERUM 4.5 MMOL/L (3.5-5.1); SODIUM LEVEL 143.0 MMOL/L (136-145)
== END ==
LOC: M PLALAB 09:38
PROVIDERS: ATTEND Physician Assistant
DX: I50.32 Chronic diastolic (congestive) heart failure (principal)

== ENCOUNTER → 2025-01-10 | Outpatient (CLI) | payer MEDICARE, OTHER | LOC: M PLAIMG 13:46 | PROVIDERS: ATTEND Registered Nurse | DX: I71.20 Thoracic aortic aneurysm, without rupture, unspecified (principal); J98.11 Atelectasis ==